=== PATIENT | male | born 1935 | race Caucasian/White ===

== ENCOUNTER 2016-05-07 20:02 | Inpatient (IN) | payer MEDICARE ==
[~2016-05-07] VITALS: Ht 165.1 cm; Wt 55.9 kg
[~2016-05-07 20:02] MED LIST: ASPI81 PO; LATA.005%O EACH EYE; MEVA40TA6 PO; NORC7.5T PO; RIVA10 PO; SINE50TA PO; TAB-TAB PO; VITA-13 PO; WAL-10TA2 PO; WALKER STANDARD
[2016-05-07 20:24] VITALS: BP 200/92; PULSE 86; RESP 14; TEMP 98; O2SAT 95
[2016-05-08] VITALS (8 sets, daily range): BP systolic 134–205; BP diastolic 63–87; PULSE 78–99; RESP 16–18; TEMP 96.9–98.1; O2SAT 94–100
[2016-05-08] MEDS ORDERED: ONDANSETRON HCL 4 MG/2 ML VIAL IVP ONE (00:30)
[2016-05-08] MEDS ORDERED: HYDROmorphone HCL PF 1 MG/ML VIAL IVS ONE (00:30)
[2016-05-08] MEDS ORDERED: SODIUM CHLORIDE 0.9% FLUSH 5 ML FLUSH IVF PRN ×3 (00:30→08:15)
[2016-05-08] MEDS ORDERED: CARB25TA9 PO (00:35)
[2016-05-08] MEDS ORDERED: LATA0.002 EACH EYE (00:35)
[2016-05-08] MEDS ORDERED: VITA10003 PO (00:35)
[2016-05-08] MEDS ORDERED: LOVA40TA PO (00:35)
[2016-05-08 00:46] LABS: AUTOMATED NEUTROPHIL # 8.8 TH/MM3 (1.8-7.7); BASOPHIL % 0.1 % (0.0-2.0); EOSINOPHIL % 0.3 % (0.0-4.0); HEMATOCRIT 41.5 % (39.0-51.0); HEMO FLAGS DIFF FINAL; LYMPH % 7.9 % (9.0-44.0); LYMPHOCYTE # 0.8 TH/MM3 (1.0-4.8); MEAN CELL VOLUME 91.4 FL (80.0-100.0); MEAN CORPUSCULAR HEMOGLOBIN 30.3 PG (27.0-34.0); MEAN CORPUSCULAR HGB CONC 33.2 % (32.0-36.0); MONO % 6.8 % (0.0-8.0); NEUT % 84.9 % (16.0-70.0); PLATELET COUNT 189 TH/MM3 (150-450); RED BLOOD COUNT 4.54 MIL/MM3 (4.50-5.90); RED CELL DISTRIBUTION WIDTH 13.8 % (11.6-17.2); WHITE BLOOD COUNT 10.3 TH/MM3 (4.0-11.0)
[2016-05-08 00:56] LABS: APTT (PATIENT) 26.4 SEC (24.3-30.1); PROTHROMBIN TIME - PATIENT 11.4 SEC (9.8-11.6)
[2016-05-08 01:04] LABS: ANION GAP 6 MEQ/L (5-15); AST (GOT) 25 U/L (15-37); BICARBONATE 31.8 MEQ/L (21.0-32.0); BLOOD UREA NITROGEN 29 MG/DL (7-18); CHLORIDE 104 MEQ/L (98-107); GLOMERULAR FILTRATION RATE 84 ML/MIN (>89); POTASSIUM 4.1 MEQ/L (3.5-5.1); SODIUM (NA) 142 MEQ/L (136-145)
--- NOTE | 2016-05-08 01:06 | RADRPT ---
EXAM DATE/TIME: 05/08/2016 00:40 [facility] COMPARISON: CHEST SINGLE AP, September 23, 2015, 21:16. INDICATIONS : Trauma, fall. MEDICAL HISTORY : Hypertension. SURGICAL HISTORY : None. ENCOUNTER: Initial ACUITY: 1 day PAIN SCORE: Non-responsive. LOCATION: Bilateral chest FINDINGS: A single view of the chest demonstrates the lungs to be symmetrically aerated without evidence of mas s, infiltrate or effusion. No evidence of pneumothorax. The cardiomediastinal contours are unremark able. Chronic deformity of the proximal right humerus and mid shaft of the left clavicle is similar in configuration to September 2015.. CONCLUSION: The lungs are clear. No acute findings. Reese Lepe MD on May 08, 2016 at 1:04 Board Certified Radiologist. This report was verified electronically.
--- NOTE | 2016-05-08 01:07 | RADRPT ---
EXAM DATE/TIME: 05/08/2016 00:36 [facility] COMPARISON: No previous studies available for comparison. INDICATIONS : Trauma, fall. MEDICAL HISTORY : None. SURGICAL HISTORY : ORIF right hip. ENCOUNTER: Initial ACUITY: 1 day PAIN SCORE: Non-responsive. LOCATION: Left hip FINDINGS: The osseous structures are osteopenic. There is a 3 screws present in the proximal right humerus. T he bony pelvic ring is intact. No acute fractures seen. CONCLUSION: No acute fracture seen. Diffuse osteopenia. Reese Lepe MD on May 08, 2016 at 1:05 Board Certified Radiologist. This report was verified electronically.
--- NOTE | 2016-05-08 01:08 | RADRPT ---
EXAM DATE/TIME: 05/08/2016 00:43 [facility] COMPARISON: HUMERUS LEFT (MIN 2VWS), April 25, 2014, 20:31. INDICATIONS : Trauma, fall. MEDICAL HISTORY : None. SURGICAL HISTORY : None. ENCOUNTER: Initial ACUITY: 1 day PAIN SCORE: Non-responsive. LOCATION: Left humerus. FINDINGS: Two-view examination of the humerus demonstrates the shaft of the humerus to be grossly intact. Ther e is deformity of the proximal humerus the region of the greater tuberosity, characteristic of a heal ed fracture (the acute fracture was seen in April 2014). No radiopaque foreign bodies. CONCLUSION: No evidence of recent bone injury. Reese Lepe MD on May 08, 2016 at 1:06 Board Certified Radiologist. This report was verified electronically.
--- NOTE | 2016-05-08 01:10 | RADRPT ---
EXAM DATE/TIME: 05/08/2016 00:50 [facility] COMPARISON: No previous studies available for comparison. INDICATIONS : Fall with loss of consciousness. RADIATION DOSE: 36.17 CTDIvol (mGy) MEDICAL HISTORY : Hypertension. Hepatitis. glaucoma, parkinsons SURGICAL HISTORY : cataract surgery, sinus surgery ENCOUNTER: Initial ACUITY: 1 day PAIN SCALE: 7/10 LOCATION: cranial TECHNIQUE: Multiple contiguous axial images were obtained of the head. Using automated exposure control and adj ustment of the mA and/or kV according to patient size, radiation dose was kept as low as reasonably a chievable to obtain optimal diagnostic quality images. FINDINGS: CEREBRUM: The ventricles are normal for age. No evidence of midline shift, mass lesion, hemorrhage or acute in farction. No extra-axial fluid collections are seen. POSTERIOR FOSSA: The cerebellum and brainstem are intact. The 4th ventricle is midline. The cerebellopontine angle i s unremarkable. EXTRACRANIAL: The visualized portion of the orbits is intact. Opacification of left sphenoid sinus. SKULL: There are several small flecks of gas in the left posterior parietal scalp. The calvaria is intact. No evidence of skull fracture. CONCLUSION: 1. No acute findings in the brain. 2. Small flecks of gas in the left posterior parietal scalp without evidence of skull fracture or rad iopaque foreign body. Reese Lepe MD on May 08, 2016 at 1:07 Board Certified Radiologist. This report was verified electronically.
[2016-05-08 01:11] LABS: ALKALINE PHOSPHATASE 64 U/L (45-117); ALT (GPT) 23 U/L (12-78); TOTAL BILIRUBIN ADULT 0.9 MG/DL (0.2-1.0)
[2016-05-08] MEDS ORDERED: LIDOCAINE 1%/EPINEPHrine 1:100,000 SOLN 20 ML VIAL INFIL ONE (01:30)
--- NOTE | 2016-05-08 03:14 | PD ---
HPI Chief Complaint: Fall Time Seen by Provider: 00:17 Travel History International Travel<30 days: No Contact w/Intl Traveler<30days: No Traveled to known affect area: No History of Present Illness HPI Patient's 80 years old and had a mechanical fall yesterday in his house. He landed on his left hip and left shoulder and struck his left parietal scalp. He has pain in the scalp shoulder and hip on the left side. The pain is worse with palpation as is the pain along the left shoulder. He did not lose consciousness. He takes no anticoagulation. He suffered with Parkinson's disease. Onset sudden. Timing has since been constant and moderately severe. PFSH Past Medical History Hx Anticoagulant Therapy: No Arthritis: Yes Cancer: Yes (PROSTATE) Cardiovascular Problems: Yes (HTN) High Cholesterol: Yes Diabetes: No Diminished Hearing: No Endocrine: No Gastrointestinal Disorders: Yes (HX REFLUX) GERD: Yes Genitourinary: No Hepatitis: Yes (1973) Hiatal Hernia: No Hypertension: Yes Immune Disorder: No Kidney Stones: Yes Musculoskeletal: Yes (BACK, ARTHRITIS) Neurologic: Yes (PARKINSONS, FALLS) Parkinson's Disease: Yes Psychiatric: No Respiratory: No Thyroid Disease: No Past Surgical History Eye Surgery: Yes (CATARACT SX RIGHT EYE) Genitourinary Surgery: Yes (PROSTATE ) Prostatectomy: Yes Other Surgery: Yes (SINUS) Social History Alcohol Use: No Tobacco Use: No Substance Use: No Allergies-Medications (Allergen,Severity, Reaction): Coded Allergies: No Known Allergies (Verified , 05/07/16) Reported Meds & Prescriptions Reported Meds & Active Scripts Active Reported Vitamin D-3 (Cholecalciferol) 1,000 Unit Tab 1,000 Units PO DAILY Lovastatin 40 Mg Tab 40 Mg PO DAILY Carbidopa-Levodopa 25-100 Mg Tab 1 Tab PO Q6HR Latanoprost Opth Drops (Latanoprost) 0.005% Drops 1 Drop EACH EYE HS Refrigerate until opened. Review of Systems Except as stated in HPI: all other systems reviewed are Neg Physical Exam Narrative GENERAL: 80-year-old male pleasant mildly distress secondary to pain and her anxiety SKIN: Warm and dry. HEAD: Atraumatic. Normocephalic. EYES: Pupils equal and round. No scleral icterus. No injection or drainage. ENT: No nasal bleeding or discharge. Mucous membranes pink and moist. NECK: Trachea midline. No JVD. CARDIOVASCULAR: Regular rate and rhythm. No murmur appreciated. RESPIRATORY: No accessory muscle use. Clear to auscultation. Breath sounds equal bilaterally. GASTROINTESTINAL: Abdomen soft, non-tender, nondistended. Hepatic and splenic margins not palpable. MUSCULOSKELETAL: No obvious deformities. No clubbing. No cyanosis. No edema. Tenderness palpation along the region overlying the greater trochanter on the left side. Patient is unable to flex at the hip. NEUROLOGICAL: Awake and alert. No obvious cranial nerve deficits. Motor grossly within normal limits. Normal speech. PSYCHIATRIC: Appropriate mood and affect; insight and judgment normal. Data Data Last Documented VS Vital Signs Date Time Temp Pulse Resp B/P Pulse Ox O2 Delivery O2 Flow Rate FiO2 05/08/16 01:12 16 05/08/16 00:40 99 Room Air 05/08/16 00:01 97 05/08/16 00:00 205/87 05/07/16 20:24 98.0 Blood pressure has improved to 147/60 overnight Orders Electrocardiogram (05/08/16 00:22) Complete Blood Count With Diff (05/08/16 00:22) Comprehensive Metabolic Panel (05/08/16 00:22) Prothrombin Time / Inr (Pt) (05/08/16 00:22) Act Partial Throm Time (Ptt) (05/08/16 00:22) Chest, Single Ap (05/08/16 00:22) Hip, Uni(Ap&Lat) W Ap Pelvis (05/08/16 00:22) Iv Access Insert/Monitor (05/08/16 00:22) Oximetry (05/08/16 00:22) Ecg Monitoring (05/08/16 00:22) Ondansetron Inj (Zofran Inj) (05/08/16 00:30) Sodium Chloride 0.9% Flush (Ns Flush) (05/08/16 00:30) Hydromorphone Pf Inj (Dilaudid Pf Inj) (05/08/16 00:30) Diet Npo (05/08/16 Breakfast) Ct Brain W/O Iv Contrast(Rout) (05/08/16 00:22) Humerus (Min 2vws) (05/08/16 ) Sling And Swathe (05/08/16 ) Sling And Swathe (05/08/16 ) Lidocai-Epi 1%-1:100,000 Inj (Xylocaine- (05/08/16 01:30) Ct Pelvis W/O Iv Contrast (05/08/16 ) Admit Order (Ed Use Only) (05/08/16 ) ^ Chief Human Resources Officer / Telemetry (05/08/16 03:32) Vital Signs (Adult) Q4H (05/08/16 03:32) Activity Bed Rest (05/08/16 03:32) ^ Saline Lock (05/08/16 03:32) ^ Notify Dr: Other (05/08/16 03:32) Ondansetron Inj (Zofran Inj) (05/08/16 03:45) Sodium Chloride 0.9% Flush (Ns Flush) (05/08/16 09:00) Sodium Chloride 0.9% Flush (Ns Flush) (05/08/16 03:45) Consult Orthopedic (05/08/16 03:32) Sodium Chlor 0.9% 1000 Ml Inj (Ns 1000 M (05/08/16 03:45) Labs Laboratory Tests Test 05/08/16 00:15 White Blood Count 10.3 TH/MM3 Red Blood Count 4.54 MIL/MM3 Hemoglobin 13.8 GM/DL Hematocrit 41.5 % Mean Corpuscular Volume 91.4 FL Mean Corpuscular Hemoglobin 30.3 PG Mean Corpuscular Hemoglobin 33.2 % Concent Red Cell Distribution Width 13.8 % Platelet Count 189 TH/MM3 Mean Platelet Volume 8.3 FL Neutrophils (%) (Auto) 84.9 % Lymphocytes (%) (Auto) 7.9 % Monocytes (%) (Auto) 6.8 % Eosinophils (%) (Auto) 0.3 % Basophils (%) (Auto) 0.1 % Neutrophils # (Auto) 8.8 TH/MM3 Lymphocytes # (Auto) 0.8 TH/MM3 Monocytes # (Auto) 0.7 TH/MM3 Eosinophils # (Auto) 0.0 TH/MM3 Basophils # (Auto) 0.0 TH/MM3 CBC Comment DIFF FINAL Differential Comment Prothrombin Time 11.4 SEC Prothromb Time International 1.0 RATIO Ratio Activated Partial 26.4 SEC Thromboplast Time Sodium Level 142 MEQ/L Potassium Level 4.1 MEQ/L Chloride Level 104 MEQ/L Carbon Dioxide Level 31.8 MEQ/L Anion Gap 6 MEQ/L Blood Urea Nitrogen 29 MG/DL Creatinine 0.87 MG/DL Estimat Glomerular Filtration 84 ML/MIN Rate Random Glucose 111 MG/DL Calcium Level 9.2 MG/DL Total Bilirubin 0.9 MG/DL Aspartate Amino Transf 25 U/L (AST/SGOT) Alanine Aminotransferase 23 U/L (ALT/SGPT) Alkaline Phosphatase 64 U/L Total Protein 6.9 GM/DL Albumin 3.7 GM/DL [facility] Medical Decision Making Medical Screen Exam Complete: Yes Emergency Medical Condition: Yes Medical Record Reviewed: Yes Differential Diagnosis Pelvis fracture, femoral neck fracture, shaft fracture, contusion, intracranial hemorrhage Narrative Course Patient will be admitted for operative repair of the left femoral head fracture. D/w Dr Tineo for [facility] service. Ortho consult placed. CBC & BMP Diagram 05/08/16 00:15 LFTs normal Coags 11.4 / 1.0 / 26.54 Last 24 hours Impressions Hip and Pelvis X-Ray 05/08/1621 Signed Impressions: Service Date/Time: Sunday, May 08, 2016 00:36 - CONCLUSION: No acute fracture seen. Diffuse osteopenia. Reese Lepe MD Head CT 05/08/1621 Signed Impressions: Service Date/Time: Sunday, May 08, 2016 00:50 - CONCLUSION: 1. No acute findings in the brain. 2. Small flecks of gas in the left posterior parietal scalp without evidence of skull fracture or radiopaque foreign body. Reese Lepe MD Chest X-Ray 05/08/1621 Signed Impressions: Service Date/Time: Sunday, May 08, 2016 00:40 - CONCLUSION: The lungs are clear. No acute findings. Reese Lepe MD Pelvis CT 05/08/16 0000 Signed Impressions: Service Date/Time: Sunday, May 08, 2016 02:34 - CONCLUSION: Nondisplaced and non-angulated fracture of the base of the head of the left femur. Reese Lepe MD Humerus X-Ray 05/08/16 Signed Impressions: Service Date/Time: Sunday, May 08, 2016 00:43 - CONCLUSION: No evidence of recent bone injury. Reese Lepe MD Diagnosis Primary Impression: Fall Qualified Code: W19.XXXA - Fall, initial encounter Additional Impressions: Fracture of femoral neck, left Qualified Code: S72.002A - Closed fracture of neck of left femur, initial encounter Contusion Qualified Code: S00.03XA - Contusion of scalp, initial encounter Admitting Information Admitting Physician Requests: Observation Barber Valladares MD May 08, 2016 03:13
--- NOTE | 2016-05-08 03:17 | RADRPT ---
EXAM DATE/TIME: 05/08/2016 02:34 [facility] COMPARISON: HIP LEFT (AP&LAT 2/3VWS) W AP PELVIS, May 08, 2016, 0:36. INDICATIONS : Fall, left hip and pelvic pain. ORAL CONTRAST: No oral contrast ingested. RADIATION DOSE: 12.20 CTDIvol (mGy) MEDICAL HISTORY : Hypertension. Carcinoma, prostate. Renal calculi. SURGICAL HISTORY : Prostatectomy. ENCOUNTER: Initial ACUITY: 1 day PAIN SCALE: 9/10 LOCATION: Left pelvis TECHNIQUE: Volumetric scanning of the pelvis was performed. Using automated exposure control and adjustment of the mA and/or kV according to patient size, radiation dose was kept as low as reasonably achievable t o obtain optimal diagnostic quality images. FINDINGS: There is diffuse osteopenia. There is a fracture of the junction of the head and neck of the left pr oximal femur without displacement and without angulation. No impaction. The left acetabulum is inta ct. The bony pelvic ring is intact. 3 screws traverse the right femoral neck. The urinary bladder is mildly distended with smooth margins. CONCLUSION: Nondisplaced and non-angulated fracture of the base of the head of the left femur. Reese Lepe MD on May 08, 2016 at 3:12 Board Certified Radiologist. This report was verified electronically.
[2016-05-08] MEDS ORDERED: ONDANSETRON HCL 4 MG/2 ML VIAL IV PRN (03:45)
[2016-05-08] MEDS: SODIUM CHLOR 0.9% 1000 ML INJ 1,000 ML IV SCH ×2 (04:27→09:15)
[2016-05-08] MEDS ORDERED: SODIUM CHLOR 0.9% 250 ML INJ 250 ML ONE (07:16)
[2016-05-08] MEDS: VANCOMYCIN HCL 1000 MG VIAL ONE ×2 (07:33→10:53)
--- NOTE | 2016-05-08 07:34 | MB ---
cc: GWEN BAINS DATE OF CONSULTATION 05/08/2016 DATE OF ADMISSION 05/07/2016 REASON FOR CONSULTATION Left femoral neck fracture HISTORY Mikie is an 80-year-old male who had a mechanical fall at his home yesterday. He landed on his left side. He had immediate left hip pain. He hit his left arm on a dresser. He has a history of Parkinson's and poor balance. He previously fractured his right hip approximately eight months ago. He presented to the emergency room where x-rays and CT scan revealed a left femoral neck fracture. He is currently awake and alert in the emergency department. He complains of left hip pain. Pain is worse with movement and is improved with rest. PAST MEDICAL HISTORY ILLNESSES 1. Prostate cancer 2. Hypertension 3. Reflux 4. Parkinson's disease SURGERIES 1. Cataract surgery 2. Prostate surgery 3. Right hip ORIF SOCIAL HISTORY The patient lives at home alone. He denies alcohol, tobacco or drug use. ALLERGIES NO KNOWN DRUG ALLERGIES. MEDICATIONS 1. Vitamin D 2. Lovastatin 3. Carbidopa and Levodopa 4. Latanoprost REVIEW OF SYSTEMS The patient denies headache, visual changes, neck pain, chest pain, shortness of breath, abdominal pain, nausea, vomiting or recent weight loss. He complains of left hip pain. Pain is worse with movement. PHYSICAL EXAMINATION The patient is a thin 80-year-old male who is mildly anxious. He is awake and alert. He is alert and oriented x3. VITAL SIGNS: Pulse is 94, respirations 16, blood pressure 147/68, O2 sat is 95% on room air. HEAD: The patient is normocephalic. EYES: Pupils are equal. NECK: Soft and nontender. Trachea is midline. ABDOMEN: Soft, nontender, nondistended. EXTREMITIES: Examination of the left arm reveals minimal pain with shoulder, elbow or wrist motion. He has skin abrasion on his left arm. Radial pulses palpable. Sensation is grossly intact. Examination of right arm reveals no pain with shoulder, elbow or wrist motion. Skin is intact. Radial pulses palpable. Metal Roofer strength is +5 bilaterally. Examination of right leg reveals no pain with hip, knee or ankle motion. Skin is intact. Dorsalis pedis pulses palpable. Sensation is grossly intact. Examination of the left leg reveals pain with any hip motion. He has no tenderness around his knee, tibia or ankle. Skin is intact. Dorsalis pedis pulses palpable. X-RAYS X-rays of left hip reviewed. X-rays reveal a mildly impacted left femoral neck fracture. IMPRESSION 1. Parkinson's disease 2. Possible osteoporosis 3. Left femoral neck fracture PLAN Treatment options were discussed with the patient. At this point, I would recommend left hip pinning. The risks of surgery include bleeding, infection, injury to arteries, nerves and blood vessels, avascular necrosis, nonunion, hip pain, painful hardware, need for hip replacement, as well as medical complications including blood clot, stroke, heart attack and . All questions were answered. A mid-level provider in my office (nurse practitioner or physician floral assistant) may see this patient on follow-up visits and continue to implement the objectives of this plan including: Starting or adjusting medications, injections , cast application, orthotics, brace application, physical therapy, radiological studies (including x-ray, MRI, CT, ultrasound, bone scan), vascular studies, neurologic studies, specialist consultation, and proceeding with surgical management, as appropriate. MD ERIKA Albright/LEANN /6:50 AM /7:17 AM [facility]IL[facility]
[2016-05-08] MEDS: ceFAZolin INJ 1,000 MG VIAL ONE ×2 (07:35→10:53)
[2016-05-08] MEDS: BUPIVACAINE/EPINEPHRINE 0.25% PF 30 ML VIAL ONE ×2 (07:55→10:53)
[2016-05-08] MEDS ORDERED: WALKER/ADULT/FO1 MIS (08:05)
[2016-05-08] MEDS ORDERED: XARE10TA PO (08:05)
[2016-05-08] MEDS ORDERED: HYDR-3288 PO (08:05)
[2016-05-08] MEDS ORDERED: ACETAMINOPHEN/HYDROcodone 325 MG/5 MG TAB PO PRN (08:15)
[2016-05-08] MEDS ORDERED: Post-op Orders (for Pharmacy) MISC XX ONE (08:15)
[2016-05-08] MEDS ORDERED: MORPHINE SULFATE 4 MG/ML INJ IV PUSH PRN (08:15)
--- NOTE | 2016-05-08 08:17 | PD.OP ---
cc: Jose Juan Leon MD Operative Report Date of Surgery: May 08, 2016 Preoperative Diagnosis: Left femoral neck fracture Postoperative Diagnosis: Procedure: Left hip pinning Anesthesia: Gen. Surgeon: Jose Juan Leon News Clerk(s): KATT Dorsey PA-C The surgical procedure was assisted by my physician railway yard assistant. My P.A. presence was necessary throughout this case for the manipulation and positioning of the surgical extremity. My P.A. was assisting me throughout the duration of this procedure. The skill set of a physician railway yard assistant was medically necessary to complete this procedure. During the surgical case the surgical pathologist was working at the back table and the physician railway yard assistant was directly assisting me. Operation and Findings: Plan of activity: TTWB left leg Patient was seen and evaluated preoperatively. The patient has significant hip pain from impacted left femoral neck fracture. The risk and benefits of surgery were discussed in depth with the patient to include bleeding infection nonunion malunion, avascular necrosis and need for hip replacement painful hardware as well as medical competitions including but not stroke heart attack and . Informed consent was obtained. Operative site was marked. Patient was brought to the operating room and placed on fracture table. IV sedation was administered by anesthesiologist. Timeout procedure was performed. Hip and leg were prepped with alcohol followed by Hibiclens and draped in the usual sterile fashion. IV antibiotics were given prior to incision. Procedure began with evaluation of fracture under fluoroscopy. Leg was gently manipulated to improve alignment. Excellent reduction was achieved. Fluoroscopy was used to confirm reduction. A three cm incision was along the lateral aspect of the proximal femur . Subcutaneous tissue was dissected bluntly. Three guidepins were placed through the lateral cortex of the proximal femur. Guide pins were placed in an inverted triangle position. Guide pins were advanced across the fracture site into the femoral head. Fluoroscopy confirmed appropriate guidepin placement. The screw lengths were measured. A cannulated drill was placed over each of the guide pins. Appropriate length Synthes 7.3 cannulated screws were placed over the guidepins. Good compression was applied across the fracture. Final fluoroscopy revealed well aligned fracture with well-placed hardware. Incision was closed with 3-0 Vicryl and misbah. Sterile dressings were applied. Patient was awakened and transferred to recovery room. Jose Juan Leon MD May 08, 2016 08:17
[2016-05-08] MEDS ORDERED: fentaNYL CITRATE 250 MCG/5 ML AMP ONE (08:40)
[2016-05-08] MEDS ORDERED: *morphine SULFATE 8 MG/ML PERIprocedure ONLY ONE (08:58)
[2016-05-08] MEDS ORDERED: SODIUM CHLORIDE 0.9% FLUSH 5 ML FLUSH IVF SCH (09:00)
[2016-05-08] MEDS ORDERED: CHOLECALCIFEROL (VIT D3) 5000 UNIT CAP PO SCH (09:00)
[2016-05-08] MEDS ORDERED: ERGOCALCIFEROL (VIT D2) 50,000 UNIT CAP PO ONE (09:00)
[2016-05-08] MEDS: SODIUM CHLORIDE 0.9% FLUSH 5 ML FLUSH IVF SCH (09:00)
[2016-05-08] MEDS ORDERED: DO NOT ADM ANY ANTICOAGULANT DRUGS XX PRN (09:45)
--- NOTE | 2016-05-08 10:05 | HHI.HP ---
HPI Service [facility] Hospitalists Primary Care Physician Earnest Lee MD Admission Diagnosis L Hip Fx, L Shoulder Contusion, L Scalp Contusion, Fall Chief Complaint: Left hip pain Travel History International Travel<30 Days: No Contact w/Intl Traveler <30 Da: No Traveled to Known Affected Are: No History of Present Illness Mr. Shelley is a pleasant 80 y/o male with Parkinson's disease who was brought to the ED on 05/07/16 after having had a mechanical fall at his home in the kitchen when he turned to walk away from the refrigerator. He reportedly landed on his left side. He had immediate left hip pain. He hit his left arm on the counter and sustained a skin tear and contusion to the left forearm as well as a small laceration to the scalp in the left. He presented to the ED where x-rays and CT scan revealed a left femoral neck fracture. Pt has a hx of falls at home and in 09/2015 he sustained a right hip fracture after a fall at home. Pt was seen by Dr. Urrutia this morning and underwent left hip pinning this morning. Pt is seen post- operatively and is doing well. Review of Systems Constitutional: DENIES: Fever, Chills Eyes: DENIES: Vision loss Ears, nose, mouth, throat: DENIES: Hearing loss Respiratory: DENIES: Cough, Shortness of breath Cardiovascular: DENIES: Chest pain, Palpitations, Syncope Gastrointestinal: DENIES: Abdominal pain, Nausea, Vomiting Genitourinary: COMPLAINS OF: Urinary incontinence (chronic) Musculoskeletal: COMPLAINS OF: Joint pain, Joint Swelling Integumentary: DENIES: Rash Neurologic: COMPLAINS OF: Tremor (chronic), Poor Balance (chronic), DENIES: Headache Psychiatric: DENIES: Confusion Past Family Social History Past Medical History Hypertension Parkinson's disease with recurrent falls at home GERD Hx of prostate cancer Past Surgical History Pinning of right hip fracture on 09/24/[address] Jose Juan Urrutia Cataract surgery Prostate surgery Reported Medications Vitamin D-3 1,000 Units PO DAILY Lovastatin 40 Mg PO DAILY Carbidopa-Levodopa 25-100 Mg PO Q6HR @ 1100, 1700, 2300 Latanoprost Opth Drops (Latanoprost) 0.005% Drops 1 Drop EACH EYE HS Refrigerate until opened. Allergies: Coded Allergies: No Known Allergies (Verified , 05/07/16) Family History Noncontributory Social History No alcohol use No illicit drug use No tobacco use Physical Exam Vital Signs Vital Signs Date Time Temp Pulse Resp B/P Pulse Ox O2 Delivery O2 Flow Rate FiO2 05/08/16 09:15 77 17 156/70 99 Nasal Cannula 2 05/08/16 09:00 92 16 165/93 98 Nasal Cannula 3 05/08/16 08:45 87 16 159/54 94 Nasal Cannula 3 05/08/16 08:30 98 16 150/70 96 Nasal Cannula 3 05/08/16 08:29 97.1 82 16 149/78 99 Nasal Cannula 3 05/08/16 06:25 94 16 147/68 95 Room Air 05/08/16 04:27 97 16 164/78 94 Room Air 05/08/16 01:12 16 05/08/16 00:40 99 Room Air 05/08/16 00:01 97 05/08/16 00:00 98 18 205/87 96 Room Air 05/07/16 20:24 98.0 86 14 200/92 95 Room Air Physical Exam GENERAL: This is a well-nourished, well-developed patient, in no apparent distress. HEENT: Atraumatic. Normocephalic. No temporal or scalp tenderness. No scleral icterus. Airway patent. NECK: Trachea midline, supple, nontender. CARDIO: Regular. RESP: CTA bilaterally. No wheezes, rales, or rhonchi. ABD: +BS, soft, non-tender, nondistended. EXT: Bandages to left hip are c/d/i, left forearm bandages are c/d/i NEURO: Awake and alert. Pt moving all extremities. Normal speech. Laboratory Laboratory Tests Test 05/08/16 00:15 White Blood Count 10.3 Red Blood Count 4.54 Hemoglobin 13.8 Hematocrit 41.5 Mean Corpuscular Volume 91.4 Mean Corpuscular Hemoglobin 30.3 Mean Corpuscular Hemoglobin 33.2 Concent Red Cell Distribution Width 13.8 Platelet Count 189 Mean Platelet Volume 8.3 Neutrophils (%) (Auto) 84.9 Lymphocytes (%) (Auto) 7.9 Monocytes (%) (Auto) 6.8 Eosinophils (%) (Auto) 0.3 Basophils (%) (Auto) 0.1 Neutrophils # (Auto) 8.8 Lymphocytes # (Auto) 0.8 Monocytes # (Auto) 0.7 Eosinophils # (Auto) 0.0 Basophils # (Auto) 0.0 CBC Comment DIFF FINAL Differential Comment Prothrombin Time 11.4 Prothromb Time International 1.0 Ratio Activated Partial 26.4 Thromboplast Time Sodium Level 142 Potassium Level 4.1 Chloride Level 104 Carbon Dioxide Level 31.8 Anion Gap 6 Blood Urea Nitrogen 29 Creatinine 0.87 Estimat Glomerular Filtration 84 Rate Random Glucose 111 Calcium Level 9.2 Total Bilirubin 0.9 Aspartate Amino Transf 25 (AST/SGOT) Alanine Aminotransferase 23 (ALT/SGPT) Alkaline Phosphatase 64 Total Protein 6.9 Albumin 3.7 25-Hydroxy Vitamin D Total 21.6 Result Diagram: 05/08/161405/08/1614 Imaging Last Impressions Hip and Pelvis X-Ray 05/08/1621 Signed Impressions: Service Date/Time: Sunday, May 08, 2016 00:36 - CONCLUSION: No acute fracture seen. Diffuse osteopenia. Reese Lepe MD Head CT 05/08/1621 Signed Impressions: Service Date/Time: Sunday, May 08, 2016 00:50 - CONCLUSION: 1. No acute findings in the brain. 2. Small flecks of gas in the left posterior parietal scalp without evidence of skull fracture or radiopaque foreign body. Reese Lepe MD Chest X-Ray 05/08/1621 Signed Impressions: Service Date/Time: Sunday, May 08, 2016 00:40 - CONCLUSION: The lungs are clear. No acute findings. Reese Lepe MD Pelvis CT 05/08/16 0000 Signed Impressions: Service Date/Time: Sunday, May 08, 2016 02:34 - CONCLUSION: Nondisplaced and non-angulated fracture of the base of the head of the left femur. Reese Lepe MD Humerus X-Ray 05/08/16 0000 Signed Impressions: Service Date/Time: Sunday, May 08, 2016 00:43 - CONCLUSION: No evidence of recent bone injury. Reese Lepe MD Septic Shock Reassessment Heart: Regular rate and rhythm Lungs: Clear Skin: Warm Assessment and Plan Problem List: (1) Fracture of femoral neck, left Status: Acute Plan: - Pt s/p mechanical fall at home sustained a left femoral neck fracture - Pt underwent pinning of the left hip on 05/08/[address] Urrutia - Post-op pain control per Ortho - PT daily - IS - Constipation precautions - DVT prophylaxis - Pt will likely need SNF at the conclusion of this hospitalization (2) Fall Status: Acute Plan: - See above. (3) Contusion Status: Acute (4) Parkinson disease Status: Chronic Plan: - Home meds continued (5) HTN (hypertension) Status: Chronic Assessment and Plan Patient examined. Assessment and plan formulated with Cat Hollins PA-C. I agree with the above. Physician Certification 2 Midnight Certification Type: Admission for Inpatient Services Order for Inpatient Services The services are ordered in accordance with Medicare regulations or non- Medicare payer requirements, as applicable. In the case of services not specified as inpatient-only, they are appropriately provided as inpatient services in accordance with the 2-midnight benchmark. Estimated LOS (days): 3 3 days is the estimated time the patient will need to remain in the hospital, assuming treatment plan goals are met and no additional complications. Post-Hospital Plan: SNF Problem Qualifiers (1) Fracture of femoral neck, left: Qualified Code: S72.002A - Closed fracture of neck of left femur, initial encounter (2) Fall: Qualified Code: W19.XXXA - Fall, initial encounter (3) Contusion: Qualified Code: S00.03XA - Contusion of scalp, initial encounter (4) HTN (hypertension): Qualified Code: I10 - Essential hypertension Cat Hollins May 08, 2016 10:05 Linwood Rios DO May 09, 2016 23:00
[2016-05-08] MEDS ORDERED: ONDANSETRON HCL 4 MG/2 ML VIAL IV PUSH ONE (12:00)
[2016-05-08] MEDS ORDERED: PROPOFOL 200 MG/20 ML AMP IV ONE (12:00)
[2016-05-08] MEDS ORDERED: ePHEDrine/NS 50 MG/5 ML SYR IV ONE (12:00)
[2016-05-08] MEDS ORDERED: PHENYLEPH/NS 1000 MCG/10 ML SYR IV ONE (12:00)
[2016-05-08] MEDS ORDERED: NON-FORMULARY DRUG (Polyethylene Glycol-Propylene Glycol Opth Drp (Systane Opth Drops) 0 D EACH EYE PRN (12:45)
[2016-05-08] MEDS ORDERED: SYSTSOL EACH EYE (12:49)
[2016-05-08] MEDS: CARBIDOPA/LEVODOPA 25 MG/100 MG TAB PO SCH ×2 (12:57→18:00)
--- NOTE | 2016-05-08 13:13 | RADRPT ---
EXAM DATE/TIME: 05/08/2016 08:07 [place] COMPARISON: No previous studies available for comparison. INDICATIONS : ORIF left hip pinning. MEDICAL HISTORY : None. SURGICAL HISTORY : None. ENCOUNTER: Subsequent ACUITY: 1 day PAIN SCORE: Non-responsive. LOCATION: Left hip. FINDINGS: 3 Dunham pins are present. Alignment anatomic. CONCLUSION: Anatomic alignment. Rashel Prado MD FACR on May 08, 2016 at 13:11 Board Certified Radiologist. This report was verified electronically.
[2016-05-08] MEDS ORDERED: ARTIFICIAL TEARS OPTH SOLN 15 ML BTL EACH EYE PRN (13:15)
[2016-05-08] MEDS: ACETAMINOPHEN/HYDROcodone 325 MG/5 MG TAB PO PRN (17:45)
--- NOTE | 2016-05-08 22:37 | EKG ---
Date Performed: 05/08/2016 Time Performed: 00:09:26 PTAGE: 80 years EKG: Sinus rhythm POSSIBLE LEFT ATRIAL ENLARGEMENT RIGHT BUNDLE BRANCH BLOCK LEFT ANTERIOR FASCICULAR BLOCK ABNORMAL E CG PREVIOUS TRACING : 05/08/2016 00.08 Since previous tracing, no significant change noted DOCTOR: Sebastian Valladares Interpretating Date/Time 05/08/2016 22:36:06
[2016-05-09] VITALS (7 sets, daily range): BP systolic 133–161; BP diastolic 61–78; PULSE 73–96; RESP 16–18; TEMP 96.9–98.8; O2SAT 94–97
[2016-05-09] MEDS: ACETAMINOPHEN/HYDROcodone 325 MG/5 MG TAB PO PRN ×2 (01:15→15:14)
[2016-05-09 06:29] LABS: AUTOMATED NEUTROPHIL # 3.7 TH/MM3 (1.8-7.7); BASOPHIL % 0.3 % (0.0-2.0); EOSINOPHIL # 0.2 TH/MM3 (0-0.4); EOSINOPHIL % 4.5 % (0.0-4.0); HEMATOCRIT 31.8 % (39.0-51.0); HEMO FLAGS DIFF FINAL; LYMPHOCYTE # 0.7 TH/MM3 (1.0-4.8); MEAN CELL VOLUME 90.9 FL (80.0-100.0); MEAN CORPUSCULAR HEMOGLOBIN 30.3 PG (27.0-34.0); MEAN CORPUSCULAR HGB CONC 33.3 % (32.0-36.0); MONO % 5.4 % (0.0-8.0); NEUT % 74.8 % (16.0-70.0); PLATELET COUNT 120 TH/MM3 (150-450); RED CELL DISTRIBUTION WIDTH 13.7 % (11.6-17.2); WHITE BLOOD COUNT 4.9 TH/MM3 (4.0-11.0)
[2016-05-09 07:15] LABS: BICARBONATE 29.5 MEQ/L (21.0-32.0); MAGNESIUM 1.7 MG/DL (1.5-2.5); POTASSIUM 3.7 MEQ/L (3.5-5.1)
[2016-05-09] MEDS: ENOXAPARIN SODIUM 30 MG/0.3 ML SYRINGE SQ SCH (08:00)
[2016-05-09] MEDS: SODIUM CHLOR 0.9% 1000 ML INJ 1,000 ML IV SCH ×2 (08:21→20:34)
[2016-05-09] MEDS: PRAVASTATIN SOD 40 MG TAB PO SCH (08:57)
[2016-05-09] MEDS: CHOLECALCIFEROL (VIT D3) 5000 UNIT CAP PO SCH (08:57)
[2016-05-09] MEDS: CARBIDOPA/LEVODOPA 25 MG/100 MG TAB PO SCH ×3 (08:57→17:10)
[2016-05-09] MEDS: SODIUM CHLORIDE 0.9% FLUSH 5 ML FLUSH IVF SCH ×2 (09:00→20:33)
--- NOTE | 2016-05-09 11:16 | PD.ORT.PN ---
Subjective Post Op Day #: 1 Subjective Remarks pain tolerable Objective Vitals Vital Signs Date Time Temp Pulse Resp B/P Pulse Ox O2 Delivery O2 Flow Rate FiO2 05/09/16 08:00 98.3 81 16 157/78 94 05/09/16 04:00 98.8 73 16 133/61 95 05/09/16 00:00 98.8 96 17 161/74 94 05/08/16 21:14 95 05/08/16 20:00 96.9 99 16 134/84 100 05/08/16 16:00 97.7 80 18 139/67 96 05/08/16 14:16 94 21 I/O 05/08/16 05/08/16 05/08/16 05/09/16 05/09/16 05/09/16 07:00 15:00 23:00 07:00 15:00 23:00 Intake Total 1029 ml 580 ml 50 ml Output Total 30 ml Balance 999 ml 580 ml 50 ml Intake Oral 0 ml 240 ml 50 ml IV Total 229 ml 340 ml Other 800 ml Output Estimated Blood Loss 30 ml # Voids 0 1 3 # Bowel Movements 0 0 Result Diagram: 05/09/16 0535 05/09/16 0535 Objective Remarks in bed, nad dressing c/d/i neg homans nvi Assessment & Plan Ortho Post Op Day #: 1 Problem List: Assessment and Plan s/p PCP L hip POD#1 TTWB daily dressing changes lovenox d/c planning to snf f/up dr mon 2 weeks Gopi Jonas May 09, 2016 11:16
--- NOTE | 2016-05-09 14:49 | HHI.PR ---
Subjective Remarks No new complaints. Objective Vitals Vital Signs Date Time Temp Pulse Resp B/P Pulse Ox O2 Delivery O2 Flow Rate FiO2 05/09/16 12:00 97.9 73 17 145/68 94 05/09/16 08:00 98.3 81 16 157/78 94 05/09/16 04:00 98.8 73 16 133/61 95 05/09/16 00:00 98.8 96 17 161/74 94 05/08/16 21:14 95 05/08/16 20:00 96.9 99 16 134/84 100 05/08/16 16:00 97.7 80 18 139/67 96 05/08/16 05/08/16 05/09/16 15:00 23:00 07:00 Intake Total 1029 ml 580 ml 50 ml Output Total 30 ml Balance 999 ml 580 ml 50 ml Intake Oral 0 ml 240 ml 50 ml IV Total 229 ml 340 ml Other 800 ml Output Estimated Blood Loss 30 ml # Voids 0 1 3 # Bowel Movements 0 0 Result Diagram: 05/09/16 0535 05/09/16 0535 Imaging Last Impressions Hip and Pelvis X-Ray 05/08/1621 Signed Impressions: Service Date/Time: Sunday, May 08, 2016 00:36 - CONCLUSION: No acute fracture seen. Diffuse osteopenia. Reese Lepe MD Head CT 05/08/1621 Signed Impressions: Service Date/Time: Sunday, May 08, 2016 00:50 - CONCLUSION: 1. No acute findings in the brain. 2. Small flecks of gas in the left posterior parietal scalp without evidence of skull fracture or radiopaque foreign body. Reese Lepe MD Chest X-Ray 05/08/1621 Signed Impressions: Service Date/Time: Sunday, May 08, 2016 00:40 - CONCLUSION: The lungs are clear. No acute findings. Reese Lepe MD Pelvis CT 05/08/16 0000 Signed Impressions: Service Date/Time: Sunday, May 08, 2016 02:34 - CONCLUSION: Nondisplaced and non-angulated fracture of the base of the head of the left femur. Reese Lepe MD Humerus X-Ray 05/08/16 0000 Signed Impressions: Service Date/Time: Sunday, May 08, 2016 00:43 - CONCLUSION: No evidence of recent bone injury. Reese Lepe MD A/P Problem List: (1) Fracture of femoral neck, left Status: Acute Plan: - Pt s/p mechanical fall at home sustained a left femoral neck fracture - Pt underwent pinning of the left hip on 05/08/[address] Ghada carroll prn - PT daily - IS - Constipation precautions - DVT prophylaxis - Pt will likely need SNF at the conclusion of this hospitalization (2) Fall Status: Acute Plan: - See above. (3) Contusion Status: Acute (4) Parkinson disease Status: Chronic Plan: - sinemet (5) HTN (hypertension) Status: Chronic Plan: - lisinopril Problem Qualifiers (1) Fracture of femoral neck, left: Qualified Code: S72.002A - Closed fracture of neck of left femur, initial encounter (2) Fall: Qualified Code: W19.XXXA - Fall, initial encounter (3) Contusion: Qualified Code: S00.03XA - Contusion of scalp, initial encounter (4) HTN (hypertension): Qualified Code: I10 - Essential hypertension Linwood Rios DO May 09, 2016 14:48
[2016-05-09] MEDS: LISINOPRIL 10 MG TAB PO SCH ×2 (15:14→20:33)
[2016-05-09] MEDS: LATANOPROST 0.005% OPHT SOLN 2.5 ML BTL EACH EYE SCH ×2 (20:33→20:35)
[2016-05-09] MEDS: DOCUSATE SODIUM 100 MG CAP PO SCH (20:33)
[2016-05-10] VITALS (7 sets, daily range): BP systolic 123–160; BP diastolic 59–85; PULSE 64–77; RESP 17–20; TEMP 95.4–98.6; O2SAT 96–99
[2016-05-10] MEDS: CHOLECALCIFEROL (VIT D3) 5000 UNIT CAP PO SCH (11:12)
[2016-05-10] MEDS: ENOXAPARIN SODIUM 30 MG/0.3 ML SYRINGE SQ SCH (11:12)
[2016-05-10] MEDS: DOCUSATE SODIUM 100 MG CAP PO SCH ×2 (11:13→21:04)
[2016-05-10] MEDS: LISINOPRIL 10 MG TAB PO SCH ×2 (11:13→21:04)
[2016-05-10] MEDS: SODIUM CHLORIDE 0.9% FLUSH 5 ML FLUSH IVF SCH ×2 (11:13→21:00)
[2016-05-10] MEDS: CARBIDOPA/LEVODOPA 25 MG/100 MG TAB PO SCH ×3 (11:13→18:05)
[2016-05-10] MEDS: PRAVASTATIN SOD 40 MG TAB PO SCH (11:13)
[2016-05-10] MEDS: SODIUM CHLOR 0.9% 1000 ML INJ 1,000 ML IV SCH ×2 (12:57→21:04)
--- NOTE | 2016-05-10 14:19 | HHI.PR ---
Subjective Remarks No new complaints. Objective Vitals Vital Signs Date Time Temp Pulse Resp B/P Pulse Ox O2 Delivery O2 Flow Rate FiO2 05/10/16 12:00 98.6 66 20 129/65 98 05/10/16 08:00 96.5 64 20 143/67 98 05/10/16 04:37 97.4 66 17 151/69 97 05/10/16 00:41 97.4 77 17 160/85 99 05/09/16 20:34 96.9 74 18 151/69 96 05/09/16 16:19 18 05/09/16 16:00 98.6 77 18 152/77 95 05/09/16 05/09/16 05/10/16 15:00 23:00 07:00 Intake Total 720 ml 490 ml 240 ml Balance 720 ml 490 ml 240 ml Intake Oral 720 ml 240 ml 240 ml IV Total 250 ml # Voids 5 2 5 # Bowel Movements 0 0 0 Result Diagram: 05/09/16 0535 05/09/16 0535 Imaging Last Impressions Hip and Pelvis X-Ray 05/08/1621 Signed Impressions: Service Date/Time: Sunday, May 08, 2016 00:36 - CONCLUSION: No acute fracture seen. Diffuse osteopenia. Reese Lepe MD Head CT 05/08/1621 Signed Impressions: Service Date/Time: Sunday, May 08, 2016 00:50 - CONCLUSION: 1. No acute findings in the brain. 2. Small flecks of gas in the left posterior parietal scalp without evidence of skull fracture or radiopaque foreign body. Reese Lepe MD Chest X-Ray 05/08/1621 Signed Impressions: Service Date/Time: Sunday, May 08, 2016 00:40 - CONCLUSION: The lungs are clear. No acute findings. Reese Lepe MD Pelvis CT 05/08/16 0000 Signed Impressions: Service Date/Time: Sunday, May 08, 2016 02:34 - CONCLUSION: Nondisplaced and non-angulated fracture of the base of the head of the left femur. Reese Lepe MD Humerus X-Ray 05/08/16 0000 Signed Impressions: Service Date/Time: Sunday, May 08, 2016 00:43 - CONCLUSION: No evidence of recent bone injury. Reese Lepe MD Objective Remarks GENERAL: This is a well-nourished, well-developed patient, in no apparent distress. CARDIOVASCULAR: Regular rate and rhythm without murmurs, gallops, or rubs. RESPIRATORY: Clear to auscultation. Breath sounds equal bilaterally. No wheezes , rales, or rhonchi. GASTROINTESTINAL: Abdomen soft, non-tender, nondistended. Normal active bowel sounds MUSCULOSKELETAL: Extremities without clubbing, cyanosis, or edema. NEURO: Alert & Oriented x4 to person, place, time, situation. Moves all ext x4 A/P Problem List: (1) Fracture of femoral neck, left Status: Acute Plan: - Pt s/p mechanical fall at home sustained a left femoral neck fracture - Pt underwent pinning of the left hip on 05/08/[address] Ghada carroll prn - PT daily - IS - Constipation precautions - DVT prophylaxis - continue current treatment plan as outlined above - anticipate d/c to SNF 05/11/16 (2) Fall Status: Acute Plan: - See above. (3) Contusion Status: Acute (4) Parkinson disease Status: Chronic Plan: - sinemet (5) HTN (hypertension) Status: Chronic Plan: - lisinopril Problem Qualifiers (1) Fracture of femoral neck, left: Qualified Code: S72.002A - Closed fracture of neck of left femur, initial encounter (2) Fall: Qualified Code: W19.XXXA - Fall, initial encounter (3) Contusion: Qualified Code: S00.03XA - Contusion of scalp, initial encounter (4) HTN (hypertension): Qualified Code: I10 - Essential hypertension Linwood Rios DO May 10, 2016 14:19
--- NOTE | 2016-05-10 16:21 | PD.ORT.PN ---
Subjective Post Op Day #: 2 Subjective Remarks pain tolerable. Objective Vitals Vital Signs Date Time Temp Pulse Resp B/P Pulse Ox O2 Delivery O2 Flow Rate FiO2 05/10/16 12:00 98.6 66 20 129/65 98 05/10/16 08:00 96.5 64 20 143/67 98 05/10/16 04:37 97.4 66 17 151/69 97 05/10/16 00:41 97.4 77 17 160/85 99 05/09/16 20:34 96.9 74 18 151/69 96 I/O 05/09/16 05/09/16 05/09/16 05/10/16 05/10/16 05/10/16 07:00 15:00 23:00 07:00 15:00 23:00 Intake Total 50 ml 720 ml 490 ml 240 ml Balance 50 ml 720 ml 490 ml 240 ml Intake Oral 50 ml 720 ml 240 ml 240 ml IV Total 250 ml # Voids 3 5 2 5 # Bowel Movements 0 0 0 0 Result Diagram: 05/09/16 0535 05/09/16 0535 Objective Remarks in bed, nad dressing c/d/i neg homans nvi Assessment & Plan Ortho Post Op Day #: 2 Problem List: Assessment and Plan s/p PCP L hip POD#2 TTWB daily dressing changes lovenox d/c planning to snf ortho stable f/up dr mon 2 weeks Gopi Jonas May 10, 2016 16:21
[2016-05-10] MEDS: LATANOPROST 0.005% OPHT SOLN 2.5 ML BTL EACH EYE SCH (21:04)
[2016-05-11] VITALS (7 sets, daily range): BP systolic 115–165; BP diastolic 60–73; PULSE 64–77; RESP 16–18; TEMP 96–97.4; O2SAT 94–99
--- NOTE | 2016-05-11 06:42 | PD.ORT.PN ---
Subjective Subjective Remarks Resting comfortably. Having difficulty swallowing Objective Vitals Vital Signs Date Time Temp Pulse Resp B/P Pulse Ox O2 Delivery O2 Flow Rate FiO2 05/11/16 04:30 96.5 70 17 115/65 94 05/11/16 00:48 96.0 66 16 157/72 95 05/10/16 20:38 98.1 65 19 123/59 96 05/10/16 18:35 98 Nasal Cannula 2.00 05/10/16 16:00 95.4 69 17 150/74 98 05/10/16 12:00 98.6 66 20 129/65 98 05/10/16 08:00 96.5 64 20 143/67 98 I/O 05/10/16 05/10/16 05/10/16 05/11/16 05/11/16 05/11/16 07:00 15:00 23:00 07:00 15:00 23:00 Intake Total 240 ml 760 ml 240 ml Balance 240 ml 760 ml 240 ml Intake Oral 240 ml 760 ml 240 ml # Voids 5 4 2 # Bowel Movements 0 0 0 Result Diagram: 05/09/16 0535 05/09/16 0535 Objective Remarks Left lower extremity: Clean dry dressings intact. Distally intact sensation. Strong dorsal flexion plantar flexion of foot Assessment & Plan Assessment and Plan s/p PCP L hip POD#3 TTWB daily dressing changes lovenox d/c planning to snf ortho stable f/up dr mon 2 weeks SUZIE FISH PA-C May 11, 2016 06:42
[2016-05-11 07:02] LABS: AUTOMATED NEUTROPHIL # 3.4 TH/MM3 (1.8-7.7); BASOPHIL % 0.2 % (0.0-2.0); EOSINOPHIL # 0.2 TH/MM3 (0-0.4); EOSINOPHIL % 4.2 % (0.0-4.0); HEMATOCRIT 33.2 % (39.0-51.0); HEMO FLAGS DIFF FINAL; LYMPHOCYTE # 1.3 TH/MM3 (1.0-4.8); MEAN CELL VOLUME 90.5 FL (80.0-100.0); MEAN CORPUSCULAR HEMOGLOBIN 30.1 PG (27.0-34.0); MEAN CORPUSCULAR HGB CONC 33.2 % (32.0-36.0); MONO % 8.9 % (0.0-8.0); NEUT % 62.7 % (16.0-70.0); PLATELET COUNT 154 TH/MM3 (150-450); RED BLOOD COUNT 3.67 MIL/MM3 (4.50-5.90); RED CELL DISTRIBUTION WIDTH 13.6 % (11.6-17.2); WHITE BLOOD COUNT 5.5 TH/MM3 (4.0-11.0)
[2016-05-11] MEDS: CHOLECALCIFEROL (VIT D3) 5000 UNIT CAP PO SCH (08:19)
[2016-05-11] MEDS: LISINOPRIL 10 MG TAB PO SCH ×2 (08:19→21:02)
[2016-05-11] MEDS: CARBIDOPA/LEVODOPA 25 MG/100 MG TAB PO SCH ×3 (08:19→19:18)
[2016-05-11] MEDS: PRAVASTATIN SOD 40 MG TAB PO SCH (08:19)
[2016-05-11] MEDS: DOCUSATE SODIUM 100 MG CAP PO SCH ×2 (08:20→21:02)
[2016-05-11] MEDS: ENOXAPARIN SODIUM 30 MG/0.3 ML SYRINGE SQ SCH (08:20)
[2016-05-11] MEDS: SODIUM CHLORIDE 0.9% FLUSH 5 ML FLUSH IVF SCH ×2 (08:21→21:02)
[2016-05-11] MEDS ORDERED: BISACODYL 10 MG SUPP RECTAL PRN (11:45)
--- NOTE | 2016-05-11 11:45 | HHI.PR ---
Subjective Remarks Pt very apprehensive about using laxatives because he does not want to "make someone clean up his mess" Pt still on supplemental O2 @ 2L Swallowing is better with the thickener for the fluids Objective Vitals Vital Signs Date Time Temp Pulse Resp B/P Pulse Ox O2 Delivery O2 Flow Rate FiO2 05/11/16 09:35 97 Nasal Cannula 2.00 05/11/16 07:43 96.0 64 17 165/71 99 05/11/16 04:30 96.5 70 17 115/65 94 05/11/16 00:48 96.0 66 16 157/72 95 05/10/16 20:38 98.1 65 19 123/59 96 05/10/16 18:35 98 Nasal Cannula 2.00 05/10/16 16:00 95.4 69 17 150/74 98 05/10/16 12:00 98.6 66 20 129/65 98 05/10/16 05/10/16 05/11/16 15:00 23:00 07:00 Intake Total 760 ml 240 ml 240 ml Balance 760 ml 240 ml 240 ml Intake Oral 760 ml 240 ml 240 ml # Voids 4 2 2 # Bowel Movements 0 0 0 Result Diagram: 05/11/16 0604 05/09/16 0535 Other Results Laboratory Tests Test 05/11/16 06:04 White Blood Count 5.5 TH/MM3 Red Blood Count 3.67 MIL/MM3 Hemoglobin 11.0 GM/DL Hematocrit 33.2 % Mean Corpuscular Volume 90.5 FL Mean Corpuscular Hemoglobin 30.1 PG Mean Corpuscular Hemoglobin 33.2 % Concent Red Cell Distribution Width 13.6 % Platelet Count 154 TH/MM3 Mean Platelet Volume 8.3 FL Neutrophils (%) (Auto) 62.7 % Lymphocytes (%) (Auto) 24.0 % Monocytes (%) (Auto) 8.9 % Eosinophils (%) (Auto) 4.2 % Basophils (%) (Auto) 0.2 % Neutrophils # (Auto) 3.4 TH/MM3 Lymphocytes # (Auto) 1.3 TH/MM3 Monocytes # (Auto) 0.5 TH/MM3 Eosinophils # (Auto) 0.2 TH/MM3 Basophils # (Auto) 0.0 TH/MM3 CBC Comment DIFF FINAL Differential Comment Imaging Last Impressions Hip and Pelvis X-Ray 05/08/16 0022 Signed Impressions: Service Date/Time: Sunday, May 08, 2016 00:36 - CONCLUSION: No acute fracture seen. Diffuse osteopenia. Reese Lepe MD Head CT 05/08/16 0022 Signed Impressions: Service Date/Time: Sunday, May 08, 2016 00:50 - CONCLUSION: 1. No acute findings in the brain. 2. Small flecks of gas in the left posterior parietal scalp without evidence of skull fracture or radiopaque foreign body. Reese Lepe MD Chest X-Ray 05/08/16 0022 Signed Impressions: Service Date/Time: Sunday, May 08, 2016 00:40 - CONCLUSION: The lungs are clear. No acute findings. Reese Lepe MD Pelvis CT 05/08/16 0000 Signed Impressions: Service Date/Time: Sunday, May 08, 2016 02:34 - CONCLUSION: Nondisplaced and non-angulated fracture of the base of the head of the left femur. Reese Lepe MD Humerus X-Ray 05/08/16 0000 Signed Impressions: Service Date/Time: Sunday, May 08, 2016 00:43 - CONCLUSION: No evidence of recent bone injury. Reese Lepe MD Objective Remarks General: Thin elderly male in NAD, AAOx3 Chest: CTA bilaterally Cardiac: Regular Abd: +BS, soft ND/NT Ext: No edema A/P Problem List: (1) Fracture of femoral neck, left Status: Acute Plan: - Pt s/p mechanical fall at home sustained a left femoral neck fracture - Pt underwent pinning of the left hip on 05/08/[address] Ghada carroll prn - PT daily - IS - Constipation precautions, pt is on stool softeners, he does not want MOM but it willing to take a suppository. Dulcolax supp PRN - Wean off supplemental O2 - DVT prophylaxis - continue current treatment plan as outlined above (2) Fall Status: Acute Plan: - See above. (3) Contusion Status: Acute (4) Parkinson disease Status: Chronic Plan: - sinemet (5) HTN (hypertension) Status: Chronic Plan: - lisinopril Assessment and Plan Patient examined. Assessment and plan formulated with Cat Hollins PA-C. I agree with the above. wean oxygen. laxatives. d/c to snf tomorrow. Problem Qualifiers (1) Fracture of femoral neck, left: Qualified Code: S72.002A - Closed fracture of neck of left femur, initial encounter (2) Fall: Qualified Code: W19.XXXA - Fall, initial encounter (3) Contusion: Qualified Code: S00.03XA - Contusion of scalp, initial encounter (4) HTN (hypertension): Qualified Code: I10 - Essential hypertension Cat Hollins May 11, 2016 11:45 Bry Caceres MD May 11, 2016 21:35
[2016-05-11] MEDS: SODIUM CHLOR 0.9% 1000 ML INJ 1,000 ML IV SCH (17:33)
[2016-05-11] MEDS: LATANOPROST 0.005% OPHT SOLN 2.5 ML BTL EACH EYE SCH (21:00)
[2016-05-12] VITALS (8 sets, daily range): BP systolic 101–173; BP diastolic 58–97; PULSE 69–79; RESP 18; TEMP 96.6–98.7; O2SAT 95–98
--- NOTE | 2016-05-12 07:10 | PD.ORT.PN ---
Subjective Subjective Remarks Resting comfortably. Having difficulty swallowing. No bowel movement yet Objective Vitals Vital Signs Date Time Temp Pulse Resp B/P Pulse Ox O2 Delivery O2 Flow Rate FiO2 05/12/16 04:00 97.2 69 18 164/71 98 05/12/16 00:00 98.7 71 18 152/66 98 05/11/16 20:00 95 Nasal Cannula 2.00 05/11/16 20:00 97.0 77 18 126/60 98 05/11/16 16:00 97.4 73 17 129/60 95 05/11/16 12:00 97.1 72 17 161/73 96 05/11/16 09:35 97 Nasal Cannula 2.00 05/11/16 07:43 96.0 64 17 165/71 99 I/O 05/11/16 05/11/16 05/11/16 05/12/16 05/12/16 05/12/16 07:00 15:00 23:00 07:00 15:00 23:00 Intake Total 240 ml 600 ml 200 ml Balance 240 ml 600 ml 200 ml Intake Oral 240 ml 600 ml 200 ml # Voids 2 3 1 2 # Bowel Movements 0 0 Result Diagram: 05/11/16 0604 05/09/16 0535 Objective Remarks Left lower extremity: Clean dry dressings intact. Distally intact sensation. Strong dorsal flexion plantar flexion of foot Assessment & Plan Assessment and Plan s/p PCP L hip POD#4 TTWB daily dressing changes lovenox Laxative of choice Discharge to rehabilitation when medically stable Follow-up with Dr. Leon or WILLIE in 2 weeks SUZIE FISH PA-C May 12, 2016 07:10
[2016-05-12] MEDS: SODIUM CHLOR 0.9% 1000 ML INJ 1,000 ML IV SCH (07:51)
[2016-05-12] MEDS: CARBIDOPA/LEVODOPA 25 MG/100 MG TAB PO SCH ×3 (09:53→17:30)
[2016-05-12] MEDS: CHOLECALCIFEROL (VIT D3) 5000 UNIT CAP PO SCH (09:53)
[2016-05-12] MEDS: DOCUSATE SODIUM 100 MG CAP PO SCH ×2 (09:53→20:15)
[2016-05-12] MEDS: PRAVASTATIN SOD 40 MG TAB PO SCH (09:53)
[2016-05-12] MEDS: ENOXAPARIN SODIUM 30 MG/0.3 ML SYRINGE SQ SCH (09:54)
[2016-05-12] MEDS: SODIUM CHLORIDE 0.9% FLUSH 5 ML FLUSH IVF SCH ×2 (09:54→20:16)
[2016-05-12] MEDS: LISINOPRIL 10 MG TAB PO SCH ×2 (09:54→20:15)
[2016-05-12] MEDS ORDERED: DOCU1CAP39 PO (13:48)
--- NOTE | 2016-05-12 13:48 | HHI.PR ---
Subjective Remarks Pt still without a BM but is passing flatus Pt still on 2L O2 via NC but is saturating in the high 90's Objective Vitals Vital Signs Date Time Temp Pulse Resp B/P Pulse Ox O2 Delivery O2 Flow Rate FiO2 05/12/16 12:26 98 Nasal Cannula 2.00 05/12/16 11:36 98.3 74 18 144/65 98 05/12/16 08:00 96.6 72 18 173/83 97 05/12/16 04:00 97.2 69 18 164/71 98 05/12/16 00:00 98.7 71 18 152/66 98 05/11/16 20:00 95 Nasal Cannula 2.00 05/11/16 20:00 97.0 77 18 126/60 98 05/11/16 16:00 97.4 73 17 129/60 95 05/11/16 05/11/16 05/12/16 15:00 23:00 07:00 Intake Total 600 ml 200 ml 240 ml Balance 600 ml 200 ml 240 ml Intake Oral 600 ml 200 ml 240 ml # Voids 3 1 2 # Bowel Movements 0 Result Diagram: 05/11/16 0604 05/09/16 0535 Other Results Laboratory Tests Test 05/11/16 06:04 White Blood Count 5.5 TH/MM3 Red Blood Count 3.67 MIL/MM3 Hemoglobin 11.0 GM/DL Hematocrit 33.2 % Mean Corpuscular Volume 90.5 FL Mean Corpuscular Hemoglobin 30.1 PG Mean Corpuscular Hemoglobin 33.2 % Concent Red Cell Distribution Width 13.6 % Platelet Count 154 TH/MM3 Mean Platelet Volume 8.3 FL Neutrophils (%) (Auto) 62.7 % Lymphocytes (%) (Auto) 24.0 % Monocytes (%) (Auto) 8.9 % Eosinophils (%) (Auto) 4.2 % Basophils (%) (Auto) 0.2 % Neutrophils # (Auto) 3.4 TH/MM3 Lymphocytes # (Auto) 1.3 TH/MM3 Monocytes # (Auto) 0.5 TH/MM3 Eosinophils # (Auto) 0.2 TH/MM3 Basophils # (Auto) 0.0 TH/MM3 CBC Comment DIFF FINAL Differential Comment Imaging Last Impressions Hip and Pelvis X-Ray 05/08/16 0022 Signed Impressions: Service Date/Time: Sunday, May 08, 2016 00:36 - CONCLUSION: No acute fracture seen. Diffuse osteopenia. Reese Lepe MD Head CT 05/08/16 0022 Signed Impressions: Service Date/Time: Sunday, May 08, 2016 00:50 - CONCLUSION: 1. No acute findings in the brain. 2. Small flecks of gas in the left posterior parietal scalp without evidence of skull fracture or radiopaque foreign body. Reese Lepe MD Chest X-Ray 05/08/16 0022 Signed Impressions: Service Date/Time: Sunday, May 08, 2016 00:40 - CONCLUSION: The lungs are clear. No acute findings. Reese Lepe MD Pelvis CT 05/08/16 0000 Signed Impressions: Service Date/Time: Sunday, May 08, 2016 02:34 - CONCLUSION: Nondisplaced and non-angulated fracture of the base of the head of the left femur. Reese Lepe MD Humerus X-Ray 05/08/16 0000 Signed Impressions: Service Date/Time: Sunday, May 08, 2016 00:43 - CONCLUSION: No evidence of recent bone injury. Reese Lepe MD Objective Remarks General: Thin elderly male in NAD, AAOx3 Chest: CTA bilaterally Cardiac: Regular Abd: +BS, soft ND/NT Ext: No edema A/P Problem List: (1) Fracture of femoral neck, left Status: Acute Plan: - Pt s/p mechanical fall at home sustained a left femoral neck fracture - Pt underwent pinning of the left hip on 05/08/[address] Ghada carroll prn - PT daily - Constipation precautions, pt is on stool softeners, he does not want MOM but it willing to take a suppository. Pt had Dulcolax supp this morning and still no BM, We will give Lactulose this morning. - Wean off supplemental O2 - Encourage IS use - DVT prophylaxis - continue current treatment plan as outlined above - Anticipate discharge to SNF in AM (2) Fall Status: Acute Plan: - See above. (3) Contusion Status: Acute (4) Parkinson disease Status: Chronic Plan: - sinemet (5) HTN (hypertension) Status: Chronic Plan: - lisinopril Assessment and Plan Patient examined. Assessment and plan formulated with Cat Hollins PA-C. I agree with the above. medically stable. awaiting bm and d/c to snf. Problem Qualifiers (1) Fracture of femoral neck, left: Qualified Code: S72.002A - Closed fracture of neck of left femur, initial encounter (2) Fall: Qualified Code: W19.XXXA - Fall, initial encounter (3) Contusion: Qualified Code: S00.03XA - Contusion of scalp, initial encounter (4) HTN (hypertension): Qualified Code: I10 - Essential hypertension Cat Hollins May 12, 2016 13:47 Bry Caceres MD May 12, 2016 15:07
--- NOTE | 2016-05-12 13:50 | HHI.DCPOC ---
Discharge Care Plan Diagnosis: (1) Fracture of femoral neck, left (2) HTN (hypertension) (3) Parkinson disease (4) Fall (5) Contusion Goals to Promote Your Health * To prevent worsening of your condition and complications * To maintain your health at the optimal level Directions to Meet Your Goals Take your medications as prescribed Follow your dietary instruction Follow activity as directed Keep your appointments as scheduled Take your immunizations and boosters as scheduled If your symptoms worsen call your PCP, if no PCP go to Urgent Care Center or Emergency Room Smoking is Dangerous to Your Health. Avoid second hand smoke Call the 24-hour hour crisis hotline for domestic abuse at Cat Hollins May 12, 2016 13:50
[2016-05-12] MEDS ORDERED: LACTULOSE SYRUP 20 GM/30 ML CUP PO ONE (14:00)
[2016-05-12] MEDS: LACTULOSE SYRUP 20 GM/30 ML CUP PO SCH ×2 (17:31→20:15)
[2016-05-12] MEDS: LATANOPROST 0.005% OPHT SOLN 2.5 ML BTL EACH EYE SCH (20:15)
[2016-05-13] VITALS (9 sets, daily range): BP systolic 108–155; BP diastolic 60–68; PULSE 71–79; RESP 18; TEMP 96–97.9; O2SAT 95–97
--- NOTE | 2016-05-13 06:44 | PD.ORT.PN ---
Subjective Subjective Remarks Resting comfortably. Having difficulty swallowing. Positive bowel movements Objective Vitals Vital Signs Date Time Temp Pulse Resp B/P Pulse Ox O2 Delivery O2 Flow Rate FiO2 05/13/16 04:46 97.9 77 18 108/60 97 05/13/16 00:59 97.8 76 18 113/61 96 05/12/16 21:26 97.8 76 18 101/58 96 05/12/16 21:25 73 05/12/16 16:00 96.8 79 18 144/97 95 05/12/16 12:26 98 Nasal Cannula 2.00 05/12/16 11:36 98.3 74 18 144/65 98 05/12/16 08:00 96.6 72 18 173/83 97 I/O 05/12/16 05/12/16 05/12/16 05/13/16 05/13/16 05/13/16 07:00 15:00 23:00 07:00 15:00 23:00 Intake Total 240 ml 480 ml 240 ml Balance 240 ml 480 ml 240 ml Intake Oral 240 ml 480 ml 240 ml # Voids 2 2 # Bowel Movements 1 5 Result Diagram: 05/11/16 0604 05/09/16 0535 Objective Remarks Left lower extremity: Clean dry dressings intact. Distally intact sensation. Strong dorsal flexion plantar flexion of foot Assessment & Plan Assessment and Plan s/p PCP L hip POD#5 TTWB, no active leglifts daily dressing changes lovenox Laxative of choice Discharge to rehabilitation when medically stable Follow-up with Dr. Leon or WILLIE in 2 weeks SUZIE FISH PA-C May 13, 2016 06:44
[2016-05-13] MEDS: LACTULOSE SYRUP 20 GM/30 ML CUP PO SCH (09:00)
[2016-05-13] MEDS: DOCUSATE SODIUM 100 MG CAP PO SCH ×2 (09:00→21:00)
[2016-05-13] MEDS: ENOXAPARIN SODIUM 30 MG/0.3 ML SYRINGE SQ SCH (09:47)
[2016-05-13] MEDS: LISINOPRIL 10 MG TAB PO SCH ×2 (09:47→21:00)
[2016-05-13] MEDS: CHOLECALCIFEROL (VIT D3) 5000 UNIT CAP PO SCH (09:47)
[2016-05-13] MEDS: PRAVASTATIN SOD 40 MG TAB PO SCH (09:47)
[2016-05-13] MEDS: CARBIDOPA/LEVODOPA 25 MG/100 MG TAB PO SCH ×3 (09:47→17:23)
[2016-05-13] MEDS: SODIUM CHLORIDE 0.9% FLUSH 5 ML FLUSH IVF SCH (09:48)
--- NOTE | 2016-05-13 11:49 | HHI.DS ---
Discharge Summary Admission Date May 08, 2016 at 03:36 Discharge Date: May 14, 2016 Admitting Diagnosis L Hip Fx, L Shoulder Contusion, L Scalp Contusion, Fall (1) Fracture of femoral neck, left Diagnosis: Principal (2) Fall Diagnosis: Secondary (3) Contusion Diagnosis: Secondary (4) Parkinson disease Diagnosis: Secondary (5) HTN (hypertension) Diagnosis: Secondary Consultants Dr. Jose Juan Urrutia - Orthopedic surgery Procedures Pinning of the left hip on 05/08/[address] Urrutia Brief History Mr. Shelley is a pleasant 80 y/o male with Parkinson's disease who was brought to the ED on 05/07/16 after having had a mechanical fall at his home in the kitchen when he turned to walk away from the refrigerator. He reportedly landed on his left side. He had immediate left hip pain. He hit his left arm on the counter and sustained a skin tear and contusion to the left forearm as well as a small laceration to the scalp in the left. He presented to the ED where x-rays and CT scan revealed a left femoral neck fracture. Pt has a hx of falls at home and in 09/2015 he sustained a right hip fracture after a fall at home. Pt was seen by Dr. Urrutia this morning and underwent left hip pinning this morning. Pt is seen post- operatively and is doing well. CBC/BMP: 05/11/16 0604 05/09/16 0535 Significant Findings Laboratory Tests Test 05/11/16 06:04 Red Blood Count 3.67 MIL/MM3 (4.50-5.90) Hemoglobin 11.0 GM/DL (13.0-17.0) Hematocrit 33.2 % (39.0-51.0) Monocytes (%) (Auto) 8.9 % (0.0-8.0) Eosinophils (%) (Auto) 4.2 % (0.0-4.0) Imaging Last Impressions Hip and Pelvis X-Ray 05/08/1621 Signed Impressions: Service Date/Time: Sunday, May 08, 2016 00:36 - CONCLUSION: No acute fracture seen. Diffuse osteopenia. Reese Lepe MD Head CT 05/08/1621 Signed Impressions: Service Date/Time: Sunday, May 08, 2016 00:50 - CONCLUSION: 1. No acute findings in the brain. 2. Small flecks of gas in the left posterior parietal scalp without evidence of skull fracture or radiopaque foreign body. Reese Lepe MD Chest X-Ray 05/08/16 0022 Signed Impressions: Service Date/Time: Sunday, May 08, 2016 00:40 - CONCLUSION: The lungs are clear. No acute findings. Reese Lepe MD Pelvis CT 05/08/16 0000 Signed Impressions: Service Date/Time: Sunday, May 08, 2016 02:34 - CONCLUSION: Nondisplaced and non-angulated fracture of the base of the head of the left femur. Reese Lepe MD Humerus X-Ray 05/08/16 0000 Signed Impressions: Service Date/Time: Sunday, May 08, 2016 00:43 - CONCLUSION: No evidence of recent bone injury. Reese Lepe MD Hip X-Ray 05/08/16 0000 Signed Impressions: Service Date/Time: Sunday, May 08, 2016 08:07 - CONCLUSION: Anatomic alignment. Rashel Prado MD FACR PE at Discharge General: Thin elderly male in NAD, AAOx3 Chest: CTA bilaterally Cardiac: Regular Abd: +BS, soft ND/NT Ext: No edema Hospital Course Fracture of femoral neck, left - Pt s/p mechanical fall at home sustained a left femoral neck fracture - Pt underwent pinning of the left hip on 05/08/[address] Ghada Flores PRN - Pt had some issues with constipation post-operatively. He was on stool softeners, he did not want MOM but did take a suppository. Pt had Dulcolax supp but still no BM. He was given Lactulose x 1 dose and has several BMs after that. - Pt was able to be weaned off supplemental O2 - Encourage IS use at rehab - Pt planned for discharge to rehab this evening. - Pt has been written for Xarelto 10mg po daily x 14 days at discharge for DVT prophylaxis Parkinson disease - Pt takes his Carbidopa-Levodopa 25-100 Mg PO Q6HR @ 1100, 1700, 2300 - He occasionally has issues with dysphagia which is better with thickened liquids HTN (hypertension) - Stable on Lisinopril Pt Condition on Discharge: Stable Discharge Disposition: Discharge to SNF Discharge Instructions DIET: Follow Instructions for: Heart Healthy Diet Speech Therapy-Diet Recommends: [place] Thickened Liquids Activities you can perform: See Additionl Instruction Other Activity Instructions: WB status per Dr. Urrutia Follow up Referrals: Orthopedics - 05/22/16 @ [facility] with Jose Juan Urrutia MD PCP Follow-up - [address] Gopi Garrett New Medications: Hydrocodone-Acetaminophen ([place]) 7.5-325 mg Tab 1 TAB PO Q4H PRN PAIN #60 Ref 0 TAB Rivaroxaban (Xarelto) 10 Mg Tab 10 MG PO DAILY Blood Clot Prevention #14 Ref 0 TAB Walker/Adult/Folding (Walker/Adult/Folding) 1 Mis Mis 1 EA .ROUTE DIRECTED #1 Ref 0 EA Docusate Sodium (Dok) 100 Mg Cap 100 MG PO BID constipation Days 14 CAP Continued Medications: Carbidopa-Levodopa (Carbidopa-Levodopa) 25-100 Mg Tab 1 TAB PO TID Pt takes medication at 1100, 1700, and 2300 Parkinson Disease Mgmt #90 Ref 0 TAB Cholecalciferol (Vitamin D-3) 1,000 Unit Tab 1000 UNITS PO DAILY #30 Ref 0 TAB Latanoprost Opth Drops (Latanoprost Opth Drops) 0.005% Drops 1 DROP EACH EYE HS Refrigerate until opened. Glaucoma #2.5 Ref 0 ML Lovastatin (Lovastatin) 40 Mg Tab 40 MG PO DAILY Cholesterol Management #30 Ref 0 TAB Polyethylene Glycol-Propylene Glycol Opth Drp (Systane Opth Drops) 0.4-0.3% Soln 1-2 DROP EACH EYE PRN PRN DRY EYE #1 Ref 0 BOTTLE Cat Hollins May 13, 2016 11:49 Bry Caceres MD May 13, 2016 12:21
[2016-05-13 13:36] LABS: BICARBONATE 31.8 MEQ/L (21.0-32.0); MAGNESIUM 2.2 MG/DL (1.5-2.5); POTASSIUM 4.1 MEQ/L (3.5-5.1)
[2016-05-13] MEDS: LATANOPROST 0.005% OPHT SOLN 2.5 ML BTL EACH EYE SCH (21:00)
[2016-05-14] VITALS: BP 150/70; PULSE 82; RESP 18; TEMP 97.5; O2SAT 96
[2016-05-14] MEDS: SODIUM CHLORIDE 0.9% FLUSH 5 ML FLUSH IVF SCH ×2 (00:51→09:51)
[2016-05-14 04:20] VITALS: BP 160/67; PULSE 75; RESP 18; TEMP 95.7; O2SAT 94
--- NOTE | 2016-05-14 06:44 | PD.ORT.PN ---
Subjective Subjective Remarks Resting comfortably. Having difficulty swallowing. Positive bowel movements Objective Vitals Vital Signs Date Time Temp Pulse Resp B/P Pulse Ox O2 Delivery O2 Flow Rate FiO2 05/14/16 04:20 95.7 75 18 160/67 94 05/14/16 00:00 97.5 82 18 150/70 96 05/13/16 22:03 96 05/13/16 20:05 97.3 79 18 149/67 96 05/13/16 17:08 72 05/13/16 16:00 96.2 72 18 144/62 97 05/13/16 12:00 96.0 72 18 127/61 97 05/13/16 10:18 95 21 05/13/16 08:00 97.0 71 18 155/68 97 I/O 05/13/16 05/13/16 05/13/16 05/14/16 05/14/16 05/14/16 07:00 15:00 23:00 07:00 15:00 23:00 Intake Total 120 ml 600 ml 240 ml Balance 120 ml 600 ml 240 ml Intake Oral 120 ml 600 ml 240 ml # Voids 2 2 2 # Bowel Movements 3 5 1 Result Diagram: 05/11/16 0604 05/13/16 1255 Objective Remarks Left lower extremity: Clean dry dressings intact. Distally intact sensation. Strong dorsal flexion plantar flexion of foot Assessment & Plan Assessment and Plan s/p PCP L hip POD#6 TTWB, no active leglifts daily dressing changes lovenox Laxative of choice Discharge to rehabilitation when medically stable Follow-up with Dr. Leon or WILLIE in 2 weeks SUZIE FISH PA-C May 14, 2016 06:44
[2016-05-14 08:00] VITALS: BP 151/74; PULSE 77; RESP 18; TEMP 97.7; O2SAT 97
--- NOTE | 2016-05-14 08:59 | HHI.PR ---
Subjective Remarks Pts discharge was held yesterday due to multiple BMs after laxatives were given on 05/12. Pt has not had any further BMs since last night, He is stable for discharge to rehab today. Objective Vitals Vital Signs Date Time Temp Pulse Resp B/P Pulse Ox O2 Delivery O2 Flow Rate FiO2 05/14/16 08:00 97.7 77 18 151/74 97 05/14/16 04:20 95.7 75 18 160/67 94 05/14/16 00:00 97.5 82 18 150/70 96 05/13/16 22:03 96 05/13/16 20:05 97.3 79 18 149/67 96 05/13/16 17:08 72 05/13/16 16:00 96.2 72 18 144/62 97 05/13/16 12:00 96.0 72 18 127/61 97 05/13/16 10:18 95 21 05/13/16 05/13/16 05/14/16 15:00 23:00 07:00 Intake Total 600 ml 240 ml Balance 600 ml 240 ml Intake Oral 600 ml 240 ml # Voids 2 2 # Bowel Movements 5 1 Result Diagram: 05/11/16 0604 05/13/16 1255 Other Results Laboratory Tests Test 05/13/16 12:55 Sodium Level 141 MEQ/L Potassium Level 4.1 MEQ/L Chloride Level 102 MEQ/L Carbon Dioxide Level 31.8 MEQ/L Anion Gap 7 MEQ/L Blood Urea Nitrogen 27 MG/DL Creatinine 0.76 MG/DL Estimat Glomerular Filtration 98 ML/MIN Rate Random Glucose 122 MG/DL Calcium Level 8.4 MG/DL Magnesium Level 2.2 MG/DL Imaging Last Impressions Hip and Pelvis X-Ray 05/08/1621 Signed Impressions: Service Date/Time: Sunday, May 08, 2016 00:36 - CONCLUSION: No acute fracture seen. Diffuse osteopenia. Reese Lepe MD Head CT 05/08/1621 Signed Impressions: Service Date/Time: Sunday, May 08, 2016 00:50 - CONCLUSION: 1. No acute findings in the brain. 2. Small flecks of gas in the left posterior parietal scalp without evidence of skull fracture or radiopaque foreign body. Reese Lepe MD Chest X-Ray 05/08/1621 Signed Impressions: Service Date/Time: Sunday, May 08, 2016 00:40 - CONCLUSION: The lungs are clear. No acute findings. Reese Lepe MD Pelvis CT 05/08/16 0000 Signed Impressions: Service Date/Time: Sunday, May 08, 2016 02:34 - CONCLUSION: Nondisplaced and non-angulated fracture of the base of the head of the left femur. Reese Lepe MD Humerus X-Ray 05/08/16 0000 Signed Impressions: Service Date/Time: Sunday, May 08, 2016 00:43 - CONCLUSION: No evidence of recent bone injury. Reese Lepe MD Objective Remarks General: Thin elderly male in NAD, AAOx3 Chest: CTA bilaterally Cardiac: Regular Abd: +BS, soft ND/NT Ext: No edema Procedures Pinning of the left hip on 05/08/[address] Urrutia A/P Problem List: (1) Fracture of femoral neck, left Status: Acute Plan: - Pt s/p mechanical fall at home sustained a left femoral neck fracture - Pt underwent pinning of the left hip on 05/08/[address] Urrutia - glen prn - PT daily - Constipation precautions, pt is on stool softeners, he does not want MOM but it willing to take a suppository. Pt had Dulcolax supp and still no BM, Pt was given Lactulose on 05/12. - Weaned off supplemental O2 - Encourage IS use - DVT prophylaxis - continue current treatment plan as outlined above - Anticipate discharge to SNF today - See discharge summary (2) Fall Status: Acute Plan: - See above. (3) Contusion Status: Acute (4) Parkinson disease Status: Chronic Plan: - sinemet (5) HTN (hypertension) Status: Chronic Plan: - lisinopril Assessment and Plan Patient examined. Assessment and plan formulated with Cat Hollins PA-C. I agree with the above. d/c to snf today Problem Qualifiers (1) Fracture of femoral neck, left: Qualified Code: S72.002A - Closed fracture of neck of left femur, initial encounter (2) Fall: Qualified Code: W19.XXXA - Fall, initial encounter (3) Contusion: Qualified Code: S00.03XA - Contusion of scalp, initial encounter (4) HTN (hypertension): Qualified Code: I10 - Essential hypertension [place],Cat E PA May 14, 2016 08:59 Bry Caceres MD May 14, 2016 12:32
[2016-05-14] MEDS: DOCUSATE SODIUM 100 MG CAP PO SCH (09:50)
[2016-05-14] MEDS: CHOLECALCIFEROL (VIT D3) 5000 UNIT CAP PO SCH (09:50)
[2016-05-14] MEDS: PRAVASTATIN SOD 40 MG TAB PO SCH (09:50)
[2016-05-14] MEDS: ENOXAPARIN SODIUM 30 MG/0.3 ML SYRINGE SQ SCH (09:50)
[2016-05-14] MEDS: LISINOPRIL 10 MG TAB PO SCH (09:50)
[2016-05-14] MEDS: CARBIDOPA/LEVODOPA 25 MG/100 MG TAB PO SCH (09:50)
== END 2016-05-14 11:59 | DRG 482 ==
LOC: NEPE 20:02 → NEDA 05-08 03:36 → N06B 05-08 11:10
PROVIDERS: ADMIT Hospitalist; ATTEND Hospitalist
PROC: 0QS7XZZ Reposition Left Upper Femur, External Approach (ICD-10-PCS; 2016-05-08)
PROC: 0QH704Z Insertion of Internal Fixation Device into Left Upper Femur, Open Approach (ICD-10-PCS; principal; 2016-05-08 07:29)
DX: S72.002A Fracture of unspecified part of neck of left femur, initial encounter for closed fracture (principal); G20 Parkinson's disease; I10 Essential (primary) hypertension; S00.03XA Contusion of scalp, initial encounter; S50.12XA Contusion of left forearm, initial encounter; W18.39XA Other fall on same level, initial encounter; Y92.000 Kitchen of unspecified non-institutional (private) residence as the place of occurrence of the external cause; Y99.9 Unspecified external cause status; M81.0 Age-related osteoporosis without current pathological fracture; K21.9 Gastro-esophageal reflux disease without esophagitis; Z91.81 History of falling; Z85.46 Personal history of malignant neoplasm of prostate; K59.00 Constipation, unspecified
CPT/HCPCS: 70450; 71010; 72192; 73060; 73502; 76000; 80048; 80053; 82306; 83735; 85025; 85610; 85730; 93005; 96374; 96375; C1713; C1769; J0690; J1170; J1650; J2270; J2370; J2405; J3010; J3370; J7030; J7050

== ENCOUNTER 2018-04-25 17:35 | Inpatient (IN) ==
--- NOTE | 2018-04-25 19:52 | XR ---
EXAM DATE: 04/25/2018 7:47 PM EST AGE/SEX: 82 years / Male INDICATIONS: Trauma, fall. Left hip pain. CLINICAL DATA: This is the patient's initial encounter. Patient reports that signs and symptoms have been present for 1 day and indicates a pain score of 6/10. MEDICAL/SURGICAL HISTORY: None. . Bilateral hip surgery. COMPARISON: No prior exams available for comparison. FINDINGS: Screws are identified within the proximal femurs bilaterally. Degenerative changes and scoliosis of t he lumbar spine are noted. There is no acute fracture or dislocation of the bony pelvis. CONCLUSION: 1. No acute fracture or dislocation. 2. Degenerative changes and scoliosis of the lumbar spine. Electronically signed by: Ramiro Castro MD Board Certified Radiologist 04/25/2018 7:50 PM EST
--- NOTE | 2018-04-25 19:53 | XR ---
EXAM DATE: 04/25/2018 7:46 PM EST AGE/SEX: 82 years / Male INDICATIONS: Trauma, fall. Left shoulder pain. CLINICAL DATA: This is the patient's initial encounter. Patient reports that signs and symptoms have been present for 1 day and indicates a pain score of 10/10. MEDICAL/SURGICAL HISTORY: None. None. COMPARISON: [facility] [place], CHEST SINGLE AP, 05/08/2016. . FINDINGS: There is an acute comminuted fracture involving the left proximal humeral head and neck. CONCLUSION: Acute comminuted fracture involving the left proximal humeral head and neck. Electronically signed by: Ramiro Castro MD Board Certified Radiologist 04/25/2018 7:51 PM EST
[2018-04-25] MEDS ORDERED: Ketorolac Inj 30 MG/ML (IVP) Vial IV.PUSH ONE (20:09)
[2018-04-25] MEDS ORDERED: Morphine Inj 4 MG/ML Vial IV.PUSH ONE (20:09)
--- NOTE | 2018-04-25 20:19 | ED ---
HPI General Chief Complaint: Fall Stated Complaint: fall/shoulder pain Time Seen by Provider: 04/25/18 20:06 Source: patient, family and EMS Mode of arrival: EMS Limitations: physical limitation (parkinson's) History of Present Illness MD complaint: Reports fall Onset (ago): minute(s) Fall from: standing (with walker --lost balance fell landing on buttock with head and back against mattress/bed frame) Fall witnessed: no Place fall occurred: long term/SNF ([facility] HOME) Loss of consciousness: none Prolonged down time: minute(s) Symptoms prior to fall: Reports dizziness Context: Reports tripped/slipped and history of frequent falls (2017 bilateral hip fractures s/p falls; walker dependent) Location of injury - extremities: Left: shoulder and thigh Severity: severe Severity scale (1-10): 7 (with movement) Quality: Reports aching and throbbing; Denies tingling and spasming Associated symptoms (after fall): Reports denies and unable to walk; Denies headache, neck pain, numbness, weakness, chest pain, shortness of breath, abdominal pain, hematuria, lightheaded, vertigo and confusion Related Data Home Medications Medication Instructions Recorded Confirmed carbidopa-levodopa 1 tab PO QID 04/25/18 04/25/18 docusate sodium 100 mg PO DAILY 04/25/18 04/25/18 latanoprost 1 drp OPHTHALMIC (EYE) QPM 04/25/18 04/25/18 lovastatin 20 mg PO HS 04/25/18 04/25/18 ropinirole 5 mg PO TID 04/25/18 04/25/18 Allergies Allergy/AdvReac Type Severity Reaction Status Date / Time No Known Allergies Allergy Uncoded 05/07/16 20:27 Review of Systems ROS: all other systems reviewed are negative [facility] Medical History Medical History Bilateral hip fractures (Acute) Glaucoma (Acute) Incontinence (Acute) Parkinson disease (Acute) Prostate cancer (Acute) Surgical History Surgical History History of prostate surgery (Acute) Social History Social History Recent Travel in [facility] within the Last 8 Weeks: No Recent Out of Country Travel within the Last 8 Weeks: No Exam Narrative Exam Narrative: GENERAL: Well-developed well-nourished elderly male no acute respiratory distress GCS 15 SKIN: Focused skin assessment warm/dry. HEAD: Atraumatic. Normocephalic. EYES: Pupils equal and round. No scleral icterus. No injection or drainage. ENT: No nasal bleeding or discharge. Mucous membranes pink and moist. NECK: Trachea midline. No JVD. No midline tenderness to direct palpation along the cervical spine no bony step-off. CARDIOVASCULAR: Regular rate and rhythm. No murmur appreciated. RESPIRATORY: No accessory muscle use. Clear to auscultation. Breath sounds equal bilaterally. GASTROINTESTINAL: Abdomen soft, non-tender, nondistended. Hepatic and splenic margins not palpable. MUSCULOSKELETAL: No obvious deformities. No clubbing. No cyanosis. No edema. Patient with obvious soft tissue swelling and mild left humeral head deformity no subluxation or dislocation deformity noted. Distal extremities neurovascularly tendon intact with brisk capillary refill less than 2 seconds and radial and ulnar pulses 2+ to palpation. Pelvic rock stable. Movement of left lower extremity at hip increases pain and resistance is noted no shortening external or internal rotation. Dorsalis pedis pulse 2+ to palpation. Right upper extremity and right lower extremity exams are grossly within normal limits with radial pulse 2+ to palpation dorsalis pedis pulse 2+ to palpation capillary refill brisk less than 2 seconds. No tenderness to palpation along the thoracic or lumbar spine no abrasion no ecchymosis no tenderness no bony abnormality identified. NEUROLOGICAL: Awake and alert. No obvious cranial nerve deficits. Motor grossly within normal limits. Normal speech. PSYCHIATRIC: Appropriate mood and affect; insight and judgment normal. Course Initial Documented Vital Signs Temperature 98.7 F 04/25/18 17:52 Pulse Rate 100 H 04/25/18 17:52 Respiratory Rate 20 04/25/18 17:52 Blood Pressure 158/81 H 04/25/18 17:52 Last Documented Vital Signs Temperature 98.7 F 04/25/18 17:52 Pulse Rate 100 H 04/25/18 17:52 Respiratory Rate 20 04/25/18 17:52 Blood Pressure 158/81 H 04/25/18 17:52 Medical Decision Making [facility] Narrative Medical decision making narrative: 82-year-old male with Parkinson's disease who has unsteady gait is walker dependent has access to wheelchair lives at assisted living facility reportedly had a non-syncopal slip and fall after turning quickly becoming slightly dizzy losing his balance and falling to the floor landing on his buttock and back against a bed frame. Patient presents with obvious soft tissue abnormality and suspicious bony deformity of the left shoulder with tenderness to palpation and increased marked pain with attempted movement as the neurovascular tendon intact and pain at the left hip with attempted range of motion. Imaging studies ordered Left shoulder x-ray identifies comminuted humeral head and neck fracture without dislocation; left hip x-ray reveals previous surgical changes no acute fracture subluxation or dislocation. Patient complains of pain IV access obtained patient administered Toradol 30 mg IV x1 dose Zofran 4 mg IV x1 dose and morphine sulfate 2 mg IV x1 dose. Patient is unable to weight-bear on the left hip and is unable to use walker or left upper externally secondary to humeral head and neck fracture. Patient lives at assisted living facility that does not have one-on-one care. Family member present who is power of asset protection professional states she cannot care for the patient home. Call placed to medicine service for observation admission. CT left hip shows greater trochanteric fractures. Information was shared with observation admitting physician Dr. Sahni. Patient will be changed from observation [place] to admission [facility] and physician is to be notified upon patient's arrival. 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 Medical Screen Exam Complete: Yes Emergency Medical Condition: Yes Lab Data Result diagrams: 04/25/18 20:50 04/25/18 20:50 Lab Results 04/25/18 04/25/18 04/25/18 Range/Units 20:50 20:50 20:50 CBC w Diff Auto diff final WBC 8.8 (4.0-11.0) th/mm3 RBC 4.28 L (4.50-5.90) mil/mm3 Hgb 12.5 L (13.0-17.0) gm/dL Hct 39.5 (39.0-51.0) % MCV 92.4 (80.0-100.0) fL MCH 29.3 (27.0-34.0) pg MCHC 31.7 L (32.0-36.0) % RDW 14.0 (11.6-17.2) % Plt Count 157 (150-450) th/mm3 MPV 8.5 (7.0-11.0) fL Neut % (Auto) 84.3 H (16.0-70.0) % Lymph % (Auto) 9.5 (9.0-44.0) % Swisher % (Auto) 5.1 (0.0-8.0) % Eos % (Auto) 0.4 (0.0-4.0) % Baso % (Auto) 0.7 (0.0-2.0) % Neut # (Auto) 7.4 (1.8-7.7) th/mm3 Lymph # (Auto) 0.8 L (1.0-4.8) th/mm3 Swisher # (Auto) 0.5 (0.0-0.9) th/mm3 Eos # (Auto) 0.0 (0.0-0.4) th/mm3 Baso # (Auto) 0.1 (0.0-0.2) th/mm3 WBC Differential . Differential Comment . PT 10.9 (9.8-11.6) sec INR 1.1 Ratio APTT 27.4 (23.4-31.7) sec Sodium 140 (136-145) meq/L Potassium 3.9 (3.5-5.1) meq/L Chloride 107 (98-107) meq/L Carbon Dioxide 25.5 (21.0-32.0) meq/L Anion Gap 8 (5-15) meq/L BUN 31 H (7-18) mg/dL Creatinine 0.80 (0.60-1.30) mg/dL Estimated GFR Greater than 89 (>89) mL/min Random Glucose 112 H (74-106) mg/dL Calcium 8.3 L (8.5-10.1) mg/dL Imaging Data Radiologist's impression: Hip X-Ray 04/25/18 00:00 CONCLUSION: 1. No acute fracture or dislocation. 2. Degenerative changes and scoliosis of the lumbar spine. Shoulder X-Ray 04/25/18 00:00 CONCLUSION: Acute comminuted fracture involving the left proximal humeral head and neck. Head CT 04/25/18 20:09 CONCLUSION: 1. No acute intracranial abnormality. 2. Mucosal thickening involving the sphenoid sinuses and ethmoid air cells bilaterally. Hip CT 04/25/18 20:09 CONCLUSION: 1. Acute comminuted fractures are noted involving the greater trochanter of the left proximal femur. 2. Small bilateral inguinal hernias containing only fat. 3. Mildly prominent prostate. 4. Degenerative changes throughout the lumbar spine. Chest X-Ray 04/25/18 21:10 CONCLUSION: 1. Blunting of the left costophrenic recess consistent with pleural thickening or tiny pleural effusion. 2. Cardiomegaly. 3. Degenerative changes and scoliosis of the thoracic spine. Discharge Plan Discharge Disposition Patient Disposition: ED Admit(ED Internal Use Only) Discharge Condition Condition: Stable Discharge Order Discharge Orders: ED Use Only Admit Order (Routine); Ordered 04/25/18 Ordered By: Teodora Gloria Discharge Details Diagnosis: Closed fracture of left hip, Fracture of left shoulder Physicians Team ED Provider: Teodora Gloria Primary Care Provider: UNKNOWN, Attending Provider: Cat Sahni Status ED Status: Admitted Patient
[2018-04-25] MEDS ORDERED: Acetaminophen 325 MG Tablet PO ONE (20:28)
[2018-04-25] MEDS ORDERED: Acetaminophen 325 MG Tablet PO PRN ×2 (20:47→21:48)
[2018-04-25] MEDS ORDERED: Bisacodyl 10 MG Supp RECTAL PRN (20:47)
--- NOTE | 2018-04-25 20:57 | CT ---
EXAM DATE: 04/25/2018 8:51 PM EST AGE/SEX: 82 years / Male INDICATIONS: Trauma. Fall. CLINICAL DATA: This is the patient's initial encounter. Patient reports that signs and symptoms have been present for 1 day and indicates a pain score of 0/10. MEDICAL/SURGICAL HISTORY: Carcinoma, prostatic. Parkinson's disease. None. RADIATION DOSE: 53.35 CTDI (mGy) COMPARISON: [facility] [place], CT BRAIN W/O CONTRAST, 05/08/2016. . TECHNIQUE: CT of the head without contrast. Using automated exposure control and adjustment of the mA and/or kV according to patient size, radiation dose was kept as low as reasonably achievable to ob tain optimal diagnostic quality images. DICOM format image data is available electronically for revi ew and comparison. FINDINGS: Cerebrum: The ventricles are normal for age. No evidence of midline shift, mass lesion, hemorrhage or acute infarction. No extraaxial fluid collections are seen. Posterior Fossa: The cerebellum and brainstem are intact. The 4th ventricle is midline. The cerebe llopontine angle is unremarkable. Extracranial: The visualized portion of the orbits is intact. Mucosal thickening is noted within the sphenoid sinuses and ethmoid air cells bilaterally. Skull: The calvaria is intact. No evidence of skull fracture. CONCLUSION: 1. No acute intracranial abnormality. 2. Mucosal thickening involving the sphenoid sinuses and ethmoid air cells bilaterally. Electronically signed by: Ramiro Castro MD Board Certified Radiologist 04/25/2018 8:56 PM EST
--- NOTE | 2018-04-25 21:01 | CT ---
EXAM DATE: 04/25/2018 8:52 PM EST AGE/SEX: 82 years / Male INDICATIONS: Trauma. Fall. Left hip pain. CLINICAL DATA: This is the patient's initial encounter. Patient reports that signs and symptoms have been present for 1 day and indicates a pain score of 9/10. MEDICAL/SURGICAL HISTORY: Parkinson's disease. Carcinoma, prostatic. . Bilateral hips. RADIATION DOSE: 15.90 CTDI (mGy) COMPARISON: No prior exams available for comparison. TECHNIQUE: Multiple contiguous axial images were acquired using a multirow detector CT scanner witho ut contrast. Multiplanar reconstruction was performed in the sagittal and coronal planes. Using aut omated exposure control and adjustment of the mA and/or kV according to patient size, radiation dose was kept as low as reasonably achievable to obtain optimal diagnostic quality images. DICOM format i mage data is available electronically for review and comparison. FINDINGS: Bones: Acute comminuted fractures are noted involving the greater trochanter of the left proximal fem ur. Screws are identified within the proximal femurs bilaterally. Joints: No significant arthropathy or bony hypertrophy is seen. The articular surface of the femora l head is smooth. Soft Tissues: Unremarkable for a non-contrast study. Other: No foreign bodies seen. Small bilateral inguinal hernias containing only fat are noted. The p rostate gland is mildly prominent. Degenerative changes are noted throughout the lumbar spine. CONCLUSION: 1. Acute comminuted fractures are noted involving the greater trochanter of the left proximal femur. 2. Small bilateral inguinal hernias containing only fat. 3. Mildly prominent prostate. 4. Degenerative changes throughout the lumbar spine. Electronically signed by: Ramiro Castro MD Board Certified Radiologist 04/25/2018 9:00 PM EST
[2018-04-25 21:05] LABS: Baso # (Auto) 0.1 th/mm3 (0.0-0.2); Baso % (Auto) 0.7 % (0.0-2.0); Eos % (Auto) 0.4 % (0.0-4.0); Hematocrit 39.5 % (39.0-51.0); Hemoglobin 12.5 gm/dL (13.0-17.0); Lymph # (Auto) 0.8 th/mm3 (1.0-4.8); Lymph % (Auto) 9.5 % (9.0-44.0); Mean Corpuscular HGB Conc 31.7 % (32.0-36.0); Mean Corpuscular Hemoglobin 29.3 pg (27.0-34.0); Mean Corpuscular Volume 92.4 fL (80.0-100.0); Mean Platelet Volume 8.5 fL (7.0-11.0); Mono # (Auto) 0.5 th/mm3 (0.0-0.9); Mono % (Auto) 5.1 % (0.0-8.0); Neut # (Auto) 7.4 th/mm3 (1.8-7.7); Neut % (Auto) 84.3 % (16.0-70.0); Platelet Count 157 th/mm3 (150-450); Red Blood Count 4.28 mil/mm3 (4.50-5.90); White Blood Count 8.8 th/mm3 (4.0-11.0)
[2018-04-25 21:14] LABS: Chloride 107 meq/L (98-107); Potassium 3.9 meq/L (3.5-5.1); Sodium 140 meq/L (136-145)
[2018-04-25 21:17] LABS: Anion Gap 8 meq/L (5-15); Blood Urea Nitrogen 31 mg/dL (7-18); Calcium 8.3 mg/dL (8.5-10.1); Carbon Dioxide 25.5 meq/L (21.0-32.0); Glucose,Random 112 mg/dL (74-106)
[2018-04-25 21:21] LABS: Glomerular Filtration Rate Greater Than 89 mL/min (>89)
--- NOTE | 2018-04-25 21:36 | XR ---
EXAM DATE: 04/25/2018 9:31 PM EST AGE/SEX: 82 years / Male INDICATIONS: Evaluate for pneumothorax, pneumonia, and communicable disease. Pre op for left humeru s fracture. CLINICAL DATA: This is the patient's initial encounter. Patient reports that signs and symptoms have been present for 1 day and indicates a pain score of 0/10. MEDICAL/SURGICAL HISTORY: Hypertension. None. COMPARISON: No prior exams available for comparison. FINDINGS: The heart is enlarged. There is blunting of the left costophrenic recess consistent with pleural thic kening or tiny pleural effusion. The pulmonary vascular pattern is normal. The lungs are clear. Old h ealed right proximal humeral fracture is noted. Degenerative changes and scoliosis of the thoracic sp ine are noted. Degenerative changes are also noted involving the shoulders bilaterally. CONCLUSION: 1. Blunting of the left costophrenic recess consistent with pleural thickening or tiny pleural effus ion. 2. Cardiomegaly. 3. Degenerative changes and scoliosis of the thoracic spine. Electronically signed by: Ramiro Castro MD Board Certified Radiologist 04/25/2018 9:35 PM EST
[2018-04-25 21:48] LABS: Activated Partial Thrombo Time 27.4 sec (23.4-31.7); INR 1.1 Ratio; Prothrombin Time 10.9 sec (9.8-11.6)
[2018-04-25] MEDS ORDERED: Naloxone Inj 0.4 MG/ML Vial IV.PUSH PRN (21:48)
[2018-04-25] MEDS: Morphine Inj 4 MG/ML Vial IV.PUSH PRN (22:43)
--- NOTE | 2018-04-25 23:42 | P.HPIM ---
History of Present Illness Primary Care Physician: UNKNOWN Mr. Shelley is a very pleasant 82 y/o male with a history of Parkinson's disease , prostate cancer, hyperlipidemia, and glaucoma who presented to the ER in [place] on 04/25/18 following a fall at home resulting in severe left arm and hip pain. The patient was found to have a comminuted fracture of the left humeral head and neck and a left greater trochanter fracture and was transferred to [facility] under the hospitalist service for medical management with orthopedic surgical consultation. The patient is seen in his hospital room. He is cognitively sharp - able to relay medical information and medications. The patient states he was standing up with his walker and took a step back to see if his family was at the door when he fell. He denies any loss of consciousness but reports some minimal dizziness prior to his fall. He reports severe pain with any movement of the left arm and left leg but states his pain was relieved with IV morphine given in [place] ED. Inpatient Certification Inpatient Certification: I certify that the inpatient services were ordered in accordance with Medicare regulations governing the order. This includes certification that hospital inpatient services are reasonable and necessary and in the case of services not specified as inpatient-only under 42 CFR 419.22(n), that they are appropriately provided as inpatient services in accordance to with the 2-midnight benchmark under 43 CFR 412.3(e) Estimated Total Length of Stay (Days): 4 Plans for Post Hospital Care: Not yet determined Review of Systems Review of Systems: all other systems reviewed are negative [facility] Medical History Medical History Bilateral hip fractures (Acute) Glaucoma (Acute) Incontinence (Acute) Parkinson disease (Acute) Prostate cancer (Acute) Surgical History Surgical History History of prostate surgery (Acute) Social History Social History Substance History: No History of Abuse Second Hand Smoke Exposure: No Smoking Status: Never smoker How Often Do You Have a Drink Containing Alcohol: Never Recent Travel in [facility] within the Last 8 Weeks: No Recent Out of Country Travel within the Last 8 Weeks: No Immunization History Tetanus Immunization: Unsure Medications and Allergies Allergies Allergy/AdvReac Type Severity Reaction Status Date / Time No Known Allergies Allergy Uncoded 05/07/16 20:27 Home Medications Medication Instructions Recorded Confirmed Type carbidopa-levodopa 1 tab PO QID 04/25/18 04/25/18 History docusate sodium 100 mg PO DAILY 04/25/18 04/25/18 History latanoprost 1 drp OPHTHALMIC (EYE) QPM 04/25/18 04/25/18 History lovastatin 20 mg PO HS 04/25/18 04/25/18 History ropinirole 5 mg PO TID 04/25/18 04/25/18 History Active Medications: Active Medications Acetaminophen (Tylenol) 650 mg PO Q4H PRN PRN Reason: Temp > 100.4 Al Hydroxide/Mg Hydroxide (Milk Of Magnesia Liq) 30 ml PO Q12H PRN PRN Reason: Mild Constipation Bisacodyl (Dulcolax Supp) 10 mg RECTAL DAILY PRN PRN Reason: SEVERE CONSITIPATION Heparin Sodium (Porcine) (Heparin Inj) 5,000 units SQ Q12H JEROMY Lactulose (Lactulose Liq) 30 ml PO DAILY PRN PRN Reason: SEVERE CONSITIPATION Morphine Sulfate (Morphine Inj) 2 mg IV.PUSH Q3H PRN PRN Reason: PAIN 3-5; IF UABLE TO TAKE PO Last Admin: 04/25/18 22:43 Dose: 2 mg Naloxone HCl (Narcan Inj) 0.4 mg IV.PUSH UNSCH PRN PRN Reason: SEE LABEL COMMENTS Ondansetron HCl (Zofran Inj) 4 mg IV.PUSH Q6H PRN PRN Reason: NAUSEA OR VOMITING Senna/Docusate Sodium (Alda-Colace) 1 tab PO BID JEROMY Sennosides (Senokot) 17.2 mg PO Q12H PRN PRN Reason: Moderate Constipation Sodium Chloride (Ns Flush) 2 ml IV.FLUSH BID JEROMY Sodium Chloride (Ns Flush) 2 ml IV.FLUSH PRN PRN PRN Reason: FLUSH AFTER USING IV ACCESS Physical Exam Vital signs: Last Vital Signs Temp 98.8 F 04/25/18 22:51 Pulse 100 H 04/25/18 22:51 Resp 20 04/25/18 22:51 BP 141/66 H 04/25/18 22:51 Intake & Output 04/23/18 04/24/18 04/25/18 04/26/18 06:59 06:59 06:59 06:59 Weight 68 kg GENERAL: This is an elderly tremulous male patient, in no apparent distress. SKIN: No rashes. Cool and dry. HEAD: Atraumatic. Normocephalic. EYES: No scleral icterus. No injection or drainage. ENT: Nose without bleeding, purulent drainage. NECK: Trachea midline. No JVD. CARDIOVASCULAR: Regular rate and rhythm without murmurs, gallops, or rubs. RESPIRATORY: Clear to auscultation. Breath sounds equal bilaterally. No wheezes , rales, or rhonchi. GASTROINTESTINAL: Abdomen soft, non-tender, nondistended. No guarding. MUSCULOSKELETAL: No obvious deformities. + 1 lower extremity edema. Pain to region of left femoral head. Distal extremities neurovascularly intact with brisk capillary refill less than 2 seconds and radial and ulnar pulses 2+ to palpation. Left hip pain with movement. No shortening external or internal rotation. Dorsalis pedis pulse 2+ to palpation. Right upper extremity and right lower extremity exams are grossly within normal limits NEUROLOGICAL: Awake and alert. Tremors noted. Normal speech. PSYCHIATRIC: Apprehensive regarding future; slightly anxious. . Results Labs CBC & Chem 7: 04/25/18 20:50 04/25/18 20:50 Imaging Impressions Hip X-Ray 04/25/18 00:00 CONCLUSION: 1. No acute fracture or dislocation. 2. Degenerative changes and scoliosis of the lumbar spine. Shoulder X-Ray 04/25/18 00:00 CONCLUSION: Acute comminuted fracture involving the left proximal humeral head and neck. Head CT 04/25/18 20:09 CONCLUSION: 1. No acute intracranial abnormality. 2. Mucosal thickening involving the sphenoid sinuses and ethmoid air cells bilaterally. Hip CT 04/25/18 20:09 CONCLUSION: 1. Acute comminuted fractures are noted involving the greater trochanter of the left proximal femur. 2. Small bilateral inguinal hernias containing only fat. 3. Mildly prominent prostate. 4. Degenerative changes throughout the lumbar spine. Chest X-Ray 04/25/18 21:10 CONCLUSION: 1. Blunting of the left costophrenic recess consistent with pleural thickening or tiny pleural effusion. 2. Cardiomegaly. 3. Degenerative changes and scoliosis of the thoracic spine. Caprini VTE Risk Assessment Caprini VTE Risk Assessment: Moderate/High Risk (score >= 2) Caprini Risk Assessment Model: Point Value = 1 Point Value = 2 Point Value = 3 Point Value = 5 Age 41-60 Minor surgery BMI > 25 kg/m2 Swollen legs Varicose veins or History of unexplained or recurrent spontaneous Oral contraceptives or hormone replacement Sepsis (< 1 month) Serious lung disease, including pneumonia (< 1 month) Abnormal pulmonary function Acute myocardial infarction Congestive heart failure (< 1 month) History of inflammatory bowel disease Medical patient at bed rest Age 61-74 Arthroscopic surgery Major open surgery (> 45 min) Laparoscopic surgery (> 45 min) Malignancy Confined to bed (> 72 hours) Immobilizing plaster cast Central venous access Age >= 75 History of VTE Family history of VTE Factor V Leiden Prothrombin [id number] Lupus anticoagulant Anticardiolipin antibodies Elevated serum homocysteine Heparin-induced thrombocytopenia Other congenital or acquired thrombophilia Stroke (< 1 month) Elective arthroplasty Hip, pelvis, or leg fracture Acute spinal cord injury (< 1 month) Prophylaxis Regimen: Total Risk Factor Score Risk Level Prophylaxis Regimen 0-1 Low Early ambulation 2 Moderate Order ONE of the following: *Sequential Compression Device (SCD) *Heparin 5000 units SQ BID 3-4 Higher Order ONE of the following medications: *Heparin 5000 units SQ TID *Enoxaparin/Lovenox 40 mg SQ daily (WT < 150 kg, CrCl > 30 mL/min) *Enoxaparin/Lovenox 30 mg SQ daily (WT < 150 kg, CrCl > 10-29 mL/min) *Enoxaparin/Lovenox 30 mg SQ BID (WT < 150 kg, CrCl > 30 mL/min) AND/OR *Sequential Compression Device (SCD) 5 or more Highest Order ONE of the following medications: *Heparin 5000 units SQ TID (Preferred with Epidurals) *Enoxaparin/Lovenox 40 mg SQ daily (WT < 150 kg, CrCl > 30 mL/min) *Enoxaparin/Lovenox 30 mg SQ daily (WT < 150 kg, CrCl > 10-29 mL/min) *Enoxaparin/Lovenox 30 mg SQ BID (WT < 150 kg, CrCl > 30 mL/min) AND *Sequential Compression Device (SCD) Assessment and Plan Plan Mr. Shelley is a very pleasant 82 y/o male with a history of Parkinson's disease , prostate cancer, hyperlipidemia, and glaucoma who presented to the ER in [place] on 04/25/18 following a fall at home resulting in severe left arm and hip pain. The patient was found to have a comminuted fracture of the left humeral head and neck and a left greater trochanter fracture and was transferred to [facility] under the hospitalist service for medical management with orthopedic surgical consultation. Left humeral head fracture Left greater trochanter fracture -left arm sling -Morphine 2 mg IV q3h PRN pain -NPO except medications -consult orthopedic surgery -consult PT and OT - patient is EXTREMELY upset about his anticipated loss of independent function including dressing himself Parkinson's Disease -continue home Sinemet and Requip Hyperlipidemia -continue home lovastatin or equiv. Glaucoma -continue home Latanoprost DVT prophylaxis -SCDs/TEDs -chemoprophylaxis held pending orthopedic surgery
[2018-04-26] MEDS: Morphine Inj 4 MG/ML Vial IV.PUSH PRN ×2 (02:46→08:16)
[2018-04-26 05:12] LABS: Baso % (Auto) 0.2 % (0.0-2.0); Eos # (Auto) 0.1 th/mm3 (0.0-0.4); Eos % (Auto) 1.8 % (0.0-4.0); Hematocrit 34.6 % (39.0-51.0); Hemoglobin 11.4 gm/dL (13.0-17.0); Lymph # (Auto) 0.7 th/mm3 (1.0-4.8); Lymph % (Auto) 12.1 % (9.0-44.0); Mean Corpuscular Hemoglobin 30.9 pg (27.0-34.0); Mean Corpuscular Volume 93.8 fL (80.0-100.0); Mean Platelet Volume 8.8 fL (7.0-11.0); Mono # (Auto) 0.3 th/mm3 (0.0-0.9); Mono % (Auto) 5.8 % (0.0-8.0); Neut # (Auto) 4.5 th/mm3 (1.8-7.7); Neut % (Auto) 80.1 % (16.0-70.0); Platelet Count 125 th/mm3 (150-450); Red Blood Count 3.68 mil/mm3 (4.50-5.90); Red Cell Distribution Width 14.4 % (11.6-17.2); White Blood Count 5.6 th/mm3 (4.0-11.0)
[2018-04-26 05:39] LABS: Carbon Dioxide 29.9 meq/L (21.0-32.0); Potassium 4.5 meq/L (3.5-5.1)
[2018-04-26] MEDS: Docusate Sodium 100 MG Capsule PO SCH (09:36)
[2018-04-26] MEDS: Senna/Docusate Sodium 8.6/50 MG Tablet PO SCH ×3 (09:37→20:02)
[2018-04-26] MEDS: Heparin - SQ 10,000 UNITS/ML Vial SQ SCH ×3 (09:37→20:01)
--- NOTE | 2018-04-26 12:52 | P.PN ---
Subjective Interval history: Follow-up visit for left humeral head fracture and left greater trochanter fracture. Patient is seen and examined eating lunch with family present. He denies any pain at the moment and states he only has pain when he moves and this pain is in his shoulder. Denies any numbness tingling, fevers, chills, N/V/ D, cough or SOB. Family is aware that no surgical intervention was advised by orthopedic services, but believe patient will need rehab at discharge. Physical Exam Vital signs: Vital Signs 04/25/18 17:52 04/25/18 22:51 04/25/18 23:38 Temperature 98.7 F 98.8 F 97.9 F Pulse Rate 100 H 100 H 104 H Respiratory Rate 20 20 17 Blood Pressure 158/81 H 141/66 H 170/77 H Pulse Oximetry 96 04/26/18 04:54 04/26/18 08:00 Temperature 97.7 F 97.6 F Pulse Rate 83 85 Respiratory Rate 18 18 Blood Pressure 162/77 H 166/76 H Pulse Oximetry 96 94 L Intake & Output 04/25/18 04/26/18 04/26/18 18:59 06:59 18:59 Intake Total 0 / 0 Balance 0 / 0 Weight 68 kg 74.9 kg Intake: Oral 0 / 0 Other: # Incontinent Voids 2 Date of Last Bowel Movement 04/25/18 04/25/18 # Bowel Movements 0 Weight On Admission 72.4 kg Narrative: GENERAL: Well-nourished well-developed male sitting up in bed in no acute distress. SKIN: Cool and dry. HEAD: Atraumatic. Normocephalic. EYES: No scleral icterus. No injection or drainage. ENT: Nose without bleeding, purulent drainage. NECK: Trachea midline. CARDIOVASCULAR: Regular rate and rhythm without murmurs, gallops, or rubs. RESPIRATORY: Clear to auscultation. Breath sounds equal bilaterally. No wheezes , rales, or rhonchi. GASTROINTESTINAL: Abdomen soft, non-tender, nondistended. MUSCULOSKELETAL: No obvious deformities left upper extremity in sling, positive movement, positive sensation, capillary refill less than 3 seconds. Left lower extremity with movement limited secondary to pain, + pedal pulse, + movement, +sensation. NEUROLOGICAL: Awake and alert. Normal speech. PSYCHIATRIC: Apprehensive regarding future. . Results - Labs CBC & Chem 7: 04/26/18 03:52 04/26/18 03:52 Laboratory Results - last 24 hr 04/25/18 04/25/18 04/25/18 20:50 20:50 20:50 CBC w Diff Auto diff final WBC 8.8 RBC 4.28 L Hgb 12.5 L Hct 39.5 MCV 92.4 MCH 29.3 MCHC 31.7 L RDW 14.0 Plt Count 157 MPV 8.5 Neut % (Auto) 84.3 H Lymph % (Auto) 9.5 [place] % (Auto) 5.1 Eos % (Auto) 0.4 Baso % (Auto) 0.7 Neut # (Auto) 7.4 Lymph # (Auto) 0.8 L [place] # (Auto) 0.5 Eos # (Auto) 0.0 Baso # (Auto) 0.1 WBC Differential . Differential Comment . PT 10.9 INR 1.1 APTT 27.4 Sodium 140 Potassium 3.9 Chloride 107 Carbon Dioxide 25.5 Anion Gap 8 BUN 31 H Creatinine 0.80 Estimated GFR Greater than 89 Random Glucose 112 H Calcium 8.3 L Blood Type Blood Type Recheck Antibody Screen 04/25/18 04/26/18 04/26/18 21:30 03:52 03:52 CBC w Diff WBC 5.6 RBC 3.68 L Hgb 11.4 L Hct 34.6 L MCV 93.8 MCH 30.9 MCHC 33.0 RDW 14.4 Plt Count 125 L MPV 8.8 Neut % (Auto) 80.1 H Lymph % (Auto) 12.1 [place] % (Auto) 5.8 Eos % (Auto) 1.8 Baso % (Auto) 0.2 Neut # (Auto) 4.5 Lymph # (Auto) 0.7 L [place] # (Auto) 0.3 Eos # (Auto) 0.1 Baso # (Auto) 0.0 WBC Differential . Differential Comment Auto diff final PT INR APTT Sodium 144 Potassium 4.5 Chloride 108 H Carbon Dioxide 29.9 Anion Gap 6 BUN 31 H Creatinine 1.04 Estimated GFR 68 L Random Glucose 112 H Calcium 8.0 L Blood Type O Positive Blood Type Recheck Required Antibody Screen Negative - Imaging Impressions Hip X-Ray 04/25/18 00:00 CONCLUSION: 1. No acute fracture or dislocation. 2. Degenerative changes and scoliosis of the lumbar spine. Shoulder X-Ray 04/25/18 00:00 CONCLUSION: Acute comminuted fracture involving the left proximal humeral head and neck. Head CT 04/25/18 20:09 CONCLUSION: 1. No acute intracranial abnormality. 2. Mucosal thickening involving the sphenoid sinuses and ethmoid air cells bilaterally. Hip CT 04/25/18 20:09 CONCLUSION: 1. Acute comminuted fractures are noted involving the greater trochanter of the left proximal femur. 2. Small bilateral inguinal hernias containing only fat. 3. Mildly prominent prostate. 4. Degenerative changes throughout the lumbar spine. Chest X-Ray 04/25/18 21:10 CONCLUSION: 1. Blunting of the left costophrenic recess consistent with pleural thickening or tiny pleural effusion. 2. Cardiomegaly. 3. Degenerative changes and scoliosis of the thoracic spine. Assessment and Plan - Plan Mr. Shelley is a very pleasant 82 y/o male with a history of Parkinson's disease , prostate cancer, hyperlipidemia, and glaucoma who presented to the ER in [place] on 04/25/18 following a fall at home resulting in severe left arm and hip pain. The patient was found to have a comminuted fracture of the left humeral head and neck and a left greater trochanter fracture and was transferred to [facility] under the hospitalist service for medical management with orthopedic surgical consultation. Left humeral head fracture Left greater trochanter fracture -left arm sling -P.o. [place] as needed -Orthopedic services who recommends no surgical intervention. -Nonweightbearing to left upper extremity in sling -Partial weightbearing 50% to left lower extremity -PT recommends PT at rehab versus home with home health physical therapy, OT recommends OT at rehab -Case management consulted for SNF placement Parkinson's Disease -continue home Sinemet and Requip Hyperlipidemia -continue statin Glaucoma -continue home Latanoprost DVT prophylaxis -subq heparin Discussed Condition With: Discussed with patient, RN, family at bedside.
--- NOTE | 2018-04-26 14:02 | ECG ---
Date Performed: 04/25/2018 Time Performed: 21:52:10 PTAGE: 82 years EKG: SINUS TACHYCARDIA RIGHT BUNDLE BRANCH BLOCK LEFT ANTERIOR FASCICULAR BLOCK VOLTAGE CRITERIA FOR LVH POSSIBLE SEPTAL MYOCARDIAL INFARCTION ABNORMAL ECG Compared to PREVIOUS TRACING , the sinus rate is faster. PREVIOUS TRACIN05/08/2016 00.09 DOCTOR: Gerardo Watts Interpretating Date/Time 04/26/2018 14:00:37
--- NOTE | 2018-04-26 15:29 | P.CONOP ---
[facility] Orthopedics Consult Note - [facility] Consult date: 04/26/18 Requesting physician: Cat Sahni Consult reason: fracture Chief complaint: Left Humerus Fracture, Left Hip Inj, Parkinson's Narrative: This is an 82 year old male who was at home yesterday when he tripped and fell, landing on the left side. He was brought to the emergency room where imaging revealed a left proximal humerus fracture and left greater trochanter fracture. He was admitted for further management. He reports pain only in the left shoulder and left hip. He denies other injury. He denies any numbness or tingling. Review of Systems Constitutional: Denies chills, Denies fever(s) Eyes: Denies change in vision Cardiovascular: Denies chest pain Respiratory: Denies shortness of breath Gastrointestinal: Denies abdominal pain Genitourinary: Reports urinary incontinence Musculoskeletal: Reports joint pain Neurologic: Reports other, Denies numbness, Denies tingling Comments: Parkinson's PMFSH - History History Provided By: Patient - Medical History Medical History: Medical History (Last Reviewed 04/26/18 @ 15:25 by Mariia Do MD) Bilateral hip fractures Glaucoma Incontinence Parkinson disease Prostate cancer - Surgical History Surgical History: Surgical History (Last Reviewed 04/26/18 @ 15:25 by Mariia Do MD) History of prostate surgery - Social History I have reviewed the patient's Social History: Yes - Tobacco History Second Hand Smoke Exposure: No Tobacco Use In Past 30 Days: No Smoking Status: Never smoker - Alcohol History How Often Do You Have a Drink Containing Alcohol: Never - Substance Use History Substance History: No History of Abuse - Travel History Recent Travel in the [facility] Within the Last 8 Weeks: No Recent Travel Out of the Country Within the Last 8 Weeks: No - Immunization History Tetanus Immunization: Unsure Hx Influenza Vaccine This Season: Yes Medications and Allergies Active Medications: Active Medications Acetaminophen (Tylenol) 650 mg PO Q4H PRN PRN Reason: Temp > 100.4 Hydrocodone Bitart/Acetaminophen ([place] 7.5/325) 1 tab PO Q6H PRN PRN Reason: Pain 2-10 Last Admin: 04/26/18 12:18 Dose: 1 tab Al Hydroxide/Mg Hydroxide (Milk Of Magnesia Liq) 30 ml PO Q12H PRN PRN Reason: Mild Constipation Bisacodyl (Dulcolax Supp) 10 mg RECTAL DAILY PRN PRN Reason: SEVERE CONSITIPATION Carbidopa/Levodopa (Sinemet 25/100 Mg) 1 tab PO QID [facility] Last Admin: 04/26/18 12:17 Dose: 1 tab Docusate Sodium (Colace) 100 mg PO DAILY [facility] Last Admin: 04/26/18 09:36 Dose: Not Given Heparin Sodium (Porcine) (Heparin Inj) 5,000 units SQ Q12H [facility] Last Admin: 04/26/18 09:37 Dose: 5,000 units Lactulose (Lactulose Liq) 30 ml PO DAILY PRN PRN Reason: SEVERE CONSITIPATION Latanoprost (Xalatan 0.005% Opth Drops) 1 drop EACH EYE QPM [facility] Naloxone HCl (Narcan Inj) 0.4 mg IV.PUSH UNSCH PRN PRN Reason: SEE LABEL COMMENTS Ondansetron HCl (Zofran Inj) 4 mg IV.PUSH Q6H PRN PRN Reason: NAUSEA OR VOMITING Pravastatin Sodium (Pravachol) 40 mg PO [facility] Last Admin: 04/26/18 00:54 Dose: 40 mg Ropinirole HCl (Requip) 5 mg PO TID [facility] Last Admin: 04/26/18 12:17 Dose: 5 mg Senna/Docusate Sodium (Alda-Colace) 1 tab PO BID [facility] Last Admin: 04/26/18 09:37 Dose: Not Given Sennosides (Senokot) 17.2 mg PO Q12H PRN PRN Reason: Moderate Constipation Sodium Chloride (Ns Flush) 2 ml IV.FLUSH BID [facility] Last Admin: 04/26/18 09:37 Dose: 2 ml Sodium Chloride (Ns Flush) 2 ml IV.FLUSH PRN PRN PRN Reason: FLUSH AFTER USING IV ACCESS Allergies Allergy/AdvReac Type Severity Reaction Status Date / Time No Known Allergies Allergy Uncoded 05/07/16 20:27 Home Medications Medication Instructions Recorded Confirmed Type carbidopa-levodopa 1 tab PO QID 04/25/18 04/25/18 History docusate sodium 100 mg PO DAILY 04/25/18 04/25/18 History latanoprost 1 drp OPHTHALMIC (EYE) QPM 04/25/18 04/25/18 History lovastatin 20 mg PO HS 04/25/18 04/25/18 History ropinirole 5 mg PO TID 04/25/18 04/25/18 History Exam Vital signs: Vital Signs 04/25/18 17:52 04/25/18 22:51 04/25/18 23:38 Temperature 98.7 F 98.8 F 97.9 F Pulse Rate 100 H 100 H 104 H Respiratory Rate 20 20 17 Blood Pressure 158/81 H 141/66 H 170/77 H Pulse Oximetry 96 04/26/18 04:54 04/26/18 08:00 Temperature 97.7 F 97.6 F Pulse Rate 83 85 Respiratory Rate 18 18 Blood Pressure 162/77 H 166/76 H Pulse Oximetry 96 94 L Intake & Output 04/25/18 04/26/18 04/26/18 18:59 06:59 18:59 Intake Total 0 / 0 Balance 0 / 0 Weight 68 kg 74.9 kg Intake: Oral 0 / 0 Other: # Incontinent Voids 2 Date of Last Bowel Movement 04/25/18 04/25/18 # Bowel Movements 0 Weight On Admission 72.4 kg - Constitutional no acute distress - Routine HEENT Exam Head: Present: normocephalic - Routine Neck Exam Present: supple - Routine Respiratory Exam Absent: accessory muscle use - Routine Cardiovascular Exam Present: RRR - Routine Extremities Exam Comments: LUE: shoulder with some swelling and ecchymosis noted. Pain with attempted ROM shoulder. No pain with ROM elbow or wrist. 2+ radial pulse. Motor and sensory intact. LLE: tenderness to palpation over the greater trochanter. No pain with gentle log roll. 2+ DP. Motor and sensory intact distally. RUE and RLE with full active ROM without pain, NVI. Results - Labs Result Diagrams: 04/26/18 03:52 04/26/18 03:52 Labs: Laboratory Results - last 24 hr 04/25/18 04/25/18 04/25/18 20:50 20:50 20:50 CBC w Diff Auto diff final WBC 8.8 RBC 4.28 L Hgb 12.5 L Hct 39.5 MCV 92.4 MCH 29.3 MCHC 31.7 L RDW 14.0 Plt Count 157 MPV 8.5 Neut % (Auto) 84.3 H Lymph % (Auto) 9.5 [place] % (Auto) 5.1 Eos % (Auto) 0.4 Baso % (Auto) 0.7 Neut # (Auto) 7.4 Lymph # (Auto) 0.8 L [place] # (Auto) 0.5 Eos # (Auto) 0.0 Baso # (Auto) 0.1 WBC Differential . Differential Comment . PT 10.9 INR 1.1 APTT 27.4 Sodium 140 Potassium 3.9 Chloride 107 Carbon Dioxide 25.5 Anion Gap 8 BUN 31 H Creatinine 0.80 Estimated GFR Greater than 89 Random Glucose 112 H Calcium 8.3 L Blood Type Blood Type Recheck Antibody Screen 04/25/18 04/26/18 04/26/18 21:30 03:52 03:52 CBC w Diff WBC 5.6 RBC 3.68 L Hgb 11.4 L Hct 34.6 L MCV 93.8 MCH 30.9 MCHC 33.0 RDW 14.4 Plt Count 125 L MPV 8.8 Neut % (Auto) 80.1 H Lymph % (Auto) 12.1 [place] % (Auto) 5.8 Eos % (Auto) 1.8 Baso % (Auto) 0.2 Neut # (Auto) 4.5 Lymph # (Auto) 0.7 L [place] # (Auto) 0.3 Eos # (Auto) 0.1 Baso # (Auto) 0.0 WBC Differential . Differential Comment Auto diff final PT INR APTT Sodium 144 Potassium 4.5 Chloride 108 H Carbon Dioxide 29.9 Anion Gap 6 BUN 31 H Creatinine 1.04 Estimated GFR 68 L Random Glucose 112 H Calcium 8.0 L Blood Type O Positive Blood Type Recheck Required Antibody Screen Negative - Diagnostic results Imaging: Impressions Hip X-Ray 04/25/18 00:00 CONCLUSION: 1. No acute fracture or dislocation. 2. Degenerative changes and scoliosis of the lumbar spine. Shoulder X-Ray 04/25/18 00:00 CONCLUSION: Acute comminuted fracture involving the left proximal humeral head and neck. Head CT 04/25/18 20:09 CONCLUSION: 1. No acute intracranial abnormality. 2. Mucosal thickening involving the sphenoid sinuses and ethmoid air cells bilaterally. Hip CT 04/25/18 20:09 CONCLUSION: 1. Acute comminuted fractures are noted involving the greater trochanter of the left proximal femur. 2. Small bilateral inguinal hernias containing only fat. 3. Mildly prominent prostate. 4. Degenerative changes throughout the lumbar spine. Chest X-Ray 04/25/18 21:10 CONCLUSION: 1. Blunting of the left costophrenic recess consistent with pleural thickening or tiny pleural effusion. 2. Cardiomegaly. 3. Degenerative changes and scoliosis of the thoracic spine. Assessment and Plan - Assessment and Plan 82 year old male with Parkinson's disease who fell and sustained a left proximal humerus fracture and left greater trochanter fracture. Plan: No surgical intervention recommended at this time. NWB LUE in sling, PWB 50% LLE. PT consult placed. Clear for discharge from orthopedic standpoint, follow up in 2 weeks.
[2018-04-26] MEDS: Latanoprost 0.005% Opth Drops 2.5 ML Bottle EACH EYE SCH (19:39)
[2018-04-27] MEDS: Morphine Inj 4 MG/ML Vial IV.PUSH PRN ×4 (01:51→22:59)
[2018-04-27] MEDS: Docusate Sodium 100 MG Capsule PO SCH (08:37)
[2018-04-27] MEDS: Heparin - SQ 10,000 UNITS/ML Vial SQ SCH ×2 (08:37→21:04)
[2018-04-27] MEDS: Senna/Docusate Sodium 8.6/50 MG Tablet PO SCH ×2 (08:37→21:05)
--- NOTE | 2018-04-27 09:40 | P.PN ---
Subjective Interval history: Follow-up visit for left humeral and left trochanteric fracture. Patient seen and examined sitting up in recliner with the assistance of physical therapist. Patient reports significant pain overnight. He also feels that the Parkinson tremors which are nonpurposeful aggravate his pain. He reports left hip pain today when getting up and left shoulder pain with movement. Denies any nausea, vomiting, diarrhea or dysuria. Discussed discharge to rehab possibly tomorrow. Physical Exam Vital signs: Vital Signs 04/26/18 12:00 04/26/18 16:00 04/26/18 20:17 Temperature 97.2 F L 97.7 F 97.9 F Pulse Rate 85 78 75 Respiratory Rate 18 16 17 Blood Pressure 176/79 H 123/65 142/66 H Pulse Oximetry 96 93 L 96 04/27/18 00:06 Temperature 97.2 F L Pulse Rate 80 Respiratory Rate 18 Blood Pressure 139/80 Pulse Oximetry 95 Intake & Output 04/26/18 04/27/18 04/27/18 18:59 06:59 18:59 Other: # Incontinent Voids 3 Date of Last Bowel Movement 04/25/18 04/25/18 Narrative: GENERAL: Well-nourished well-developed male sitting up in bed in no acute distress. SKIN: Cool and dry. HEAD: Atraumatic. Normocephalic. EYES: No scleral icterus. No injection or drainage. ENT: Nose without bleeding, purulent drainage. NECK: Trachea midline. CARDIOVASCULAR: Regular rate and rhythm without murmurs, gallops, or rubs. RESPIRATORY: Clear to auscultation. Breath sounds equal bilaterally. No wheezes , rales, or rhonchi. GASTROINTESTINAL: Abdomen soft, non-tender, nondistended. MUSCULOSKELETAL: No obvious deformities left upper extremity in sling, positive movement, positive sensation, capillary refill less than 3 seconds. Left lower extremity with movement limited secondary to pain, + pedal pulse, + movement, +sensation. NEUROLOGICAL: Awake and alert. Normal speech. PSYCHIATRIC: Apprehensive regarding future. . Results - Labs CBC & Chem 7: 04/26/18 03:52 04/26/18 03:52 Assessment and Plan - Plan Mr. Shelley is a very pleasant 82 y/o male with a history of Parkinson's disease , prostate cancer, hyperlipidemia, and glaucoma who presented to the ER in [place] on 04/25/18 following a fall at home resulting in severe left arm and hip pain. The patient was found to have a comminuted fracture of the left humeral head and neck and a left greater trochanter fracture and was transferred to [facility] [place] under the hospitalist service for medical management with orthopedic surgical consultation. Left humeral head fracture Left greater trochanter fracture -left arm sling -P.o. [place] as needed, will increase to 10mg for better pain control -Orthopedic services who recommends no surgical intervention. -Nonweightbearing to left upper extremity in sling -Partial weightbearing 50% to left lower extremity -PT recommends PT at rehab versus home with home health physical therapy, OT recommends OT at rehab -Case management consulted for SNF placement either today or tomorrow. Parkinson's Disease -continue home Sinemet and Requip Hyperlipidemia -continue statin Glaucoma -continue home Latanoprost DVT prophylaxis -subq heparin Discussed Condition With: Patient, RN and supervisor case loading.
[2018-04-27] MEDS: Latanoprost 0.005% Opth Drops 2.5 ML Bottle EACH EYE SCH (18:00)
--- NOTE | 2018-04-28 08:19 | P.DS ---
Date of admission: 04/25/18 21:48 Primary care physician: UNKNOWN Attending physician on discharge: Ramiro Coronel Anticipated date of discharge: 04/28/18 Brief History from admission: Mr. Shelley is a very pleasant 82 y/o male with a history of Parkinson's disease , prostate cancer, hyperlipidemia, and glaucoma who presented to the ER in [place] on 04/25/18 following a fall at home resulting in severe left arm and hip pain. The patient was found to have a comminuted fracture of the left humeral head and neck and a left greater trochanter fracture and was transferred to [facility] under the hospitalist service for medical management with orthopedic surgical consultation. The patient is seen in his hospital room. He is cognitively sharp - able to relay medical information and medications. The patient states he was standing up with his walker and took a step back to see if his family was at the door when he fell. He denies any loss of consciousness but reports some minimal dizziness prior to his fall. He reports severe pain with any movement of the left arm and left leg but states his pain was relieved with IV morphine given in [place] ED. DS: Medications - Discharge Medications Prescriptions: hydrocodone-acetaminophen 1 tab PO Q6H PRN #12 tab PRN Reason: Pain 2-10 DS: Summary Hospital Course: 82-year-old male with past medical history significant for Parkinson's disease, prostate cancer, hyperlipidemia, and glaucoma who presented to [facility] emergency department 04/25 following a fall at home resulting in left arm and left hip pain. Patient found to have a comminuted fracture of the left humeral head and neck and a left greater trochanter fracture and was transferred to [facility]. Patient was seen and evaluated by orthopedic services who recommended no surgical intervention at this time. Nonweightbearing to left upper extremity in a sling, partial weightbearing to left lower extremity. Cleared for discharge to follow-up with orthopedic services in 2 weeks. Control was achieved with p.o. [place] 10 mg, hemodynamically stable, labs stable. Case management has discussed with POA and have agreed on discharge to nursing home facility. Patient is seen and examined this morning resting in bed comfortably in no acute distress. He does report sleeping on and off overnight, complaints of pain. Did not receive pain medication after around 10 PM. He denies any fevers, chills, nausea, vomiting or diarrhea. Constipation reported by nursing staff, discussed suppository. Patient voices no other acute concerns or complaints, agreeable with discharge to rehab. - Time Spent with Patient Total time spent providing and/or coordinating discharge services: Greater than 30 minutes Exam Vital signs: Vital Signs 04/27/18 12:00 04/27/18 16:00 04/27/18 19:50 Temperature 98.3 F 98.3 F 97.9 F Pulse Rate 68 77 79 Respiratory Rate 16 16 17 Blood Pressure 123/57 L 130/71 155/68 H Pulse Oximetry 92 L 92 L 94 L 04/28/18 00:06 04/28/18 04:17 Temperature 98.4 F 97.4 F L Pulse Rate 76 85 Respiratory Rate 16 17 Blood Pressure 160/74 H 165/74 H Pulse Oximetry 93 L 94 L Intake & Output 04/27/18 04/28/18 04/28/18 18:59 06:59 18:59 Intake Total 180 / 180 Balance 180 / 180 Weight 73.1 kg Intake: Oral 180 / 180 Other: # Urine Diapers 2 Date of Last Bowel Movement 04/25/18 # Bowel Movements 0 Narrative: GENERAL: Well-nourished well-developed male sitting up in bed in no acute distress. SKIN: Cool and dry. HEAD: Atraumatic. Normocephalic. EYES: No scleral icterus. No injection or drainage. ENT: Nose without bleeding, purulent drainage. NECK: Trachea midline. CARDIOVASCULAR: Regular rate and rhythm without murmurs, gallops, or rubs. RESPIRATORY: Clear to auscultation. Breath sounds equal bilaterally. No wheezes , rales, or rhonchi. GASTROINTESTINAL: Abdomen soft, non-tender, nondistended. MUSCULOSKELETAL: No obvious deformities left upper extremity in sling, positive movement, positive sensation, capillary refill less than 3 seconds. Left lower extremity with movement limited secondary to pain, + pedal pulse, + movement, +sensation. NEUROLOGICAL: Awake and alert. Normal speech. PSYCHIATRIC: Apprehensive regarding future. . Results Procedures completed during hospitalization: None - Impressions ITS Impressions Hip X-Ray 04/25/18 00:00 CONCLUSION: 1. No acute fracture or dislocation. 2. Degenerative changes and scoliosis of the lumbar spine. Shoulder X-Ray 04/25/18 00:00 CONCLUSION: Acute comminuted fracture involving the left proximal humeral head and neck. Head CT 04/25/18 20:09 CONCLUSION: 1. No acute intracranial abnormality. 2. Mucosal thickening involving the sphenoid sinuses and ethmoid air cells bilaterally. Hip CT 04/25/18 20:09 CONCLUSION: 1. Acute comminuted fractures are noted involving the greater trochanter of the left proximal femur. 2. Small bilateral inguinal hernias containing only fat. 3. Mildly prominent prostate. 4. Degenerative changes throughout the lumbar spine. Chest X-Ray 04/25/18 21:10 CONCLUSION: 1. Blunting of the left costophrenic recess consistent with pleural thickening or tiny pleural effusion. 2. Cardiomegaly. 3. Degenerative changes and scoliosis of the thoracic spine. Discharge Plan - Discharge Disposition Patient Disposition: 03 Discharge to SNF - Discharge Condition Condition: Stable - Discharge Order Discharge Orders: Discharge Order (Routine); Ordered 04/28/18 Ordered By: Alexander Avalos - Physicians Team Primary Care Provider: UNKNOWN, Attending Provider: Ramiro Coronel Other Providers: Edinson Ram MD ; [facility]
[2018-04-28] MEDS: Heparin - SQ 10,000 UNITS/ML Vial SQ SCH (08:21)
[2018-04-28] MEDS: Docusate Sodium 100 MG Capsule PO SCH (08:22)
[2018-04-28] MEDS: Senna/Docusate Sodium 8.6/50 MG Tablet PO SCH (08:22)
[2018-04-28 08:26] VITALS: RESP 18
[2018-04-28 11:09] VITALS: O2SAT 93
[2018-04-28 11:10] VITALS: BP 144/60; PULSE 75; TEMP 97.6
== END 2018-04-28 12:14 | DRG 562 ==
LOC: PHEDA 17:35 → PHEFT 17:35 → PHEDA 22:55 → N06 23:20
PROVIDERS: ADMIT Internal Medicine; ATTEND Internal Medicine
CPT/HCPCS: 70450; 71010; 71045; 73030; 73502; 73700; 80048; 85025; 85610; 85730; 86850; 86900; 86901; 93005; 97112; 97162; 97167; 97530; 97535; 99285; J1644; J1885; J2270; J2405